=== PATIENT | male | born 1950 | race Caucasian/White ===

== ENCOUNTER 2019-08-05 23:21 | Emergency (ER) | payer OTHER ==
--- NOTE | 2019-08-06 00:24 | EDM.PDOC ---
ED HPI GENERAL MEDICAL PROBLEM - General Chief Complaint: General Stated Complaint: FELL OUT OF BED Time Seen by Provider: 08/05/19 23:35 Source of Information: Reports: Patient, EMS History Limitations: Reports: No Limitations - History of Present Illness INITIAL COMMENTS - FREE TEXT/NARRATIVE: According to patient's spouse, he was transferring himself from bed to his walker to use the toilet to night and he lost control and fell , when she went to see, he was on the ground. Pt is a heavy set male. She could not lift him up so she called for Ambulance. Per EMT, his SPO2 on site was 78% and was place on 15 liters non rebreather. in the emergency room he is maintaining SPO2 of 95-97% on 2 litres. he does have cough which his spouse claims is chronic. Pt is alert and very groggy( which his spouse claims is normal for him). He does answer questions appropriately. 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 He did take 6 tabs of Vicodin today. Also he has chronic right leg edema and seeping wound for several years now according to his spouse. He takes lasix to help with swelling. Onset: Today Onset Date: 08/05/19 Onset Time: 22:00 Location: Reports: Back, Lower Extremity, Right Quality: Reports: Ache Severity: Moderate Associated Symptoms: Reports: Fever/Chills. Denies: Confusion, Chest Pain, Cough, Diaphoresis, Headaches, Nausea/Vomiting, Rash, Seizure, Shortness of Breath, Syncope, Weakness - Related Data Allergies Allergy/AdvReac Type Severity Reaction Status Date / Time meperidine HCl [From Demerol] Allergy Headache Verified 07/07/13 12:02 varenicline tartrate Allergy Agitation Verified 07/07/13 12:02 [From Chantix] ED ROS GENERAL - Review of Systems Review Of Systems: See Below Constitutional: Reports: Chills. Denies: Fever, Night Sweats, Decreased Appetite HEENT: Denies: Rhinitis, Throat Pain Respiratory: Reports: Cough (chronic). Denies: Shortness of Breath, Wheezing, Pleuritic Chest Pain, Sputum Cardiovascular: Reports: Edema. Denies: Chest Pain, Claudication, Dyspnea on Exertion, Lightheadedness, PND GI/Abdominal: Denies: Abdominal Pain, Constipation, Diarrhea, Nausea, Vomiting : Denies: Dysuria, Frequency Musculoskeletal: Reports: Back Pain, Leg Pain, Foot Pain Skin: Reports: Wound. Denies: Bruising, Pruritis, Rash ED EXAM, GENERAL - Physical Exam Exam: See Below Exam Limited By: No Limitations General Appearance: Alert, Obese, Other (paraplegic, constantly gross body twicthing and also has some parkinsson like tremors of the upper extremities. ) Eye Exam: Left Eye: EOMI, PERRL Ears: Normal External Exam, Normal Canal, Hearing Grossly Normal, Normal TMs Ear Exam: Bilateral Ear: Auricle Normal, Canal Normal, TM normal Nose: Normal Inspection, Normal Mucosa, No Blood Throat/Mouth: Normal Inspection, Normal Lips, Normal Teeth, Normal Gums, Normal Oropharynx, Normal Voice, No Airway Compromise Head: Atraumatic, Normocephalic Neck: Normal Inspection, Supple, Non-Tender, Full Range of Motion Respiratory/Chest: No Respiratory Distress, No Accessory Muscle Use, Decreased Breath Sounds, Crackles (in the base B/l) Cardiovascular: Normal Peripheral Pulses, Regular Rate, Rhythm, No Edema, No Gallop, No JVD, No Murmur, No Rub GI/Abdominal: Normal Bowel Sounds, Soft, Non-Tender, No Organomegaly, No Distention, No Abnormal Bruit, No Mass Back Exam: Normal Inspection, Full Range of Motion (cannot do much ROM of the back, due to spasm and pain), Other Extremities: Other (Right lower extremity chronic edema extends into the upper leg , minimal chronic erythema and pitting type, There is clear serous drainage from the posterior aspect of the lower leg from skin stretching.) Neurological: Alert Skin Exam: Warm EKG INTERPRETATION Rhythm: A-Fib Rate (Beats/Min): 98 [place]: Normal QRS: Normal ST-T: Normal QT: Normal EKG Interpretation Comments: Afib with RVR Course - Vital Signs Text/Narrative:: Pt is very stuporous. He is running low grade fever today. He was brought into emergency room for a fall today. He is alert, but groggy. His spouse feels that it is normal for him to feel that way, as he does not sleep well when he has bad back spasms. His Ct lumbar spine and pelvis is negative for acute fractures. his right Tib X-ray appears normal. His right foot X-ray appears normal. There does not appear any acute bony injury. Also he is running fever in the emergency room and has chronic right leg edema with skin breakdown. He does have chronic cough which is not new either. I did get CBC which shows elevated White count of 26K with 73% neutrophils. His Lactic acid is elevated at 3.32. His chest X-ray shows pulmonary venous congestion concern for CHF.His EKG show afib with multiple [place]. [place] [address], His troponin is elevated at 0.8 . Also his CMP show elevated creat of 2.2with BUN of 43 and his last Creat in 2017 was 1.2. According to spouse he does not have cardiac history at all. My assumption is, patient probably has got septic from his right leg infection, was getting of the bed and might have had [place] felt weak and fell. Pt is in sepsis( possibly from the right leg chronic wound), Non STEMI, Heart failure and renal failure. He did receive Vancomycin 1gm and also He has received Aspirin 324mg chewable. Kept him on O2 at 2 litre. Received heparin bolus 4000 units followed by 1000unit/hr. As patient is and has his care through [place], I did contact [facility] and discuss patient with Dr. Tucker the [facility] commissioner of relocation services. Her recommendation was to transfer patient to [facility]. I did contact Dr. Wells and discuss patient with him. He has agreed to accept patient. Patient has been hemodynamically stable all through the emergency room stay.Pt will be transferred by [facility]. Further care per Dr. Wells. Last Recorded V/S: Last Vital Signs Temp 99.2 F 08/06/19 01:08 Pulse 99 08/06/19 01:08 Resp 20 08/06/19 01:08 BP 149/62 H 08/06/19 01:08 Pulse Ox 96 08/06/19 01:08 - Orders/Labs/Meds Orders: Active Orders 24 hr Category Date Time Status EKG Documentation Completion [RC] ASDIRECTED Care 08/06/19 01:28 Active Chest 1V Frontal [CR] Stat Exams 08/06/19 00:52 Taken Foot 2V Rt [CR] Stat Exams 08/05/19 23:56 Taken Lumbar Spine wo Cont [CT] Stat Exams 08/05/19 23:56 Taken Pelvis wo Cont [CT] Stat Exams 08/05/19 23:56 Taken Tibia Fibula Rt [CR] Stat Exams 08/05/19 23:56 Taken CULTURE BLOOD [BC] Stat Lab 08/06/19 01:20 Received Heparin Sodium/D5W [Heparin 25,000 Units in D5W 500 ML] Med 08/06/19 02:15 Active 25,000 units in 500 ml IV TITRATE Medication Orders Heparin Sodium/Dextrose (Heparin 25,000 Units In D5w 500 Ml) 25,000 units in 500 mls @ 28.522 mls/hr IV TITRATE POOL; Protocol Last Admin: 08/06/19 02:17 Dose: 12 units/kg/hr, 28.522 mls/hr Labs: Laboratory Tests 08/06/19 08/06/19 08/06/19 Range/Units 00:40 00:40 00:40 WBC (4.0-11.0) K/uL RBC (4.50-6.50) M/uL Hgb (13.0-18.0) g/dL Hct (40.0-54.0) % MCV (76-96) fL MCH (27.0-32.0) pg MCHC (31.0-35.0) g/dL RDW (11.0-16.0) % Plt Count (150-400) K/uL MPV (6.0-10.0) fL Add Manual Diff Neutrophils % (Manual) (45.0-70.0) % Band Neutrophils % % Lymphocytes % (Manual) (20.0-40.0) % Monocytes % (Manual) (3.0-10.0) % Basophils % (Manual) (0.0-0.5) % Platelet Estimate PT (9.0-11.5) sec INR (1.0-3.5) APTT (24.4-33.2) SECONDS Sodium 132 L (136-145) mmol/L Potassium 3.5 (3.5-5.1) mmol/L Chloride 95 L (98-107) mmol/L Carbon Dioxide 24.7 D (21.0-32.0) mmol/L Anion Gap 15.8 H (5.0-15.0) mmol/L BUN 43 H D (8-26) mg/dL Creatinine 2.26 H D (0.70-1.30) mg/dL Est Cr Clr Drug Dosing 34.86 mL/min Estimated GFR (MDRD) 29 L (>60) MLS/MIN BUN/Creatinine Ratio 19.0 (6-25) Glucose 258 H (74-100) mg/dL Lactic Acid 3.32 H (0.90-1.70) mmol/L Calcium 9.4 (8.5-10.1) mg/dL Total Bilirubin 0.6 (0.0-1.0) mg/dL AST 41 H (15-37) U/L ALT 15 (12-78) U/L Alkaline Phosphatase 59 (46-116) U/L Troponin I (0.000-0.060) ng/mL B-Natriuretic Peptide 65135 H D (0-125) pg/mL Total Protein 7.8 (6.4-8.2) g/dL Albumin 2.5 L (3.4-5.0) g/dL Globulin 5.3 H (2.2-4.2) g/dL Albumin/Globulin Ratio 0.5 L (0.8-2.0) 08/06/19 08/06/19 08/06/19 Range/Units 00:40 00:40 00:47 WBC 26.9 H* D (4.0-11.0) K/uL RBC 4.11 L (4.50-6.50) M/uL Hgb 12.9 L (13.0-18.0) g/dL Hct 37.7 L (40.0-54.0) % MCV 92 (76-96) fL MCH 31.4 (27.0-32.0) pg MCHC 34.2 (31.0-35.0) g/dL RDW 13.9 (11.0-16.0) % Plt Count 217 (150-400) K/uL MPV 9.6 (6.0-10.0) fL Add Manual Diff Yes Neutrophils % (Manual) 73.0 H (45.0-70.0) % Band Neutrophils % 22.0 % Lymphocytes % (Manual) 3.0 L (20.0-40.0) % Monocytes % (Manual) 1.0 L (3.0-10.0) % Basophils % (Manual) 1.0 H (0.0-0.5) % Platelet Estimate Adequate PT 14.3 H D (9.0-11.5) sec INR 1.5 D (1.0-3.5) APTT 44.1 H (24.4-33.2) SECONDS Sodium (136-145) mmol/L Potassium (3.5-5.1) mmol/L Chloride (98-107) mmol/L Carbon Dioxide (21.0-32.0) mmol/L Anion Gap (5.0-15.0) mmol/L BUN (8-26) mg/dL Creatinine (0.70-1.30) mg/dL Est Cr Clr Drug Dosing mL/min Estimated GFR (MDRD) (>60) MLS/MIN BUN/Creatinine Ratio (6-25) Glucose (74-100) mg/dL Lactic Acid (0.90-1.70) mmol/L Calcium (8.5-10.1) mg/dL Total Bilirubin (0.0-1.0) mg/dL AST (15-37) U/L ALT (12-78) U/L Alkaline Phosphatase (46-116) U/L Troponin I 0.802 H* (0.000-0.060) ng/mL B-Natriuretic Peptide (0-125) pg/mL Total Protein (6.4-8.2) g/dL Albumin (3.4-5.0) g/dL Globulin (2.2-4.2) g/dL Albumin/Globulin Ratio (0.8-2.0) Meds: Medications Generic Name Dose Route Start Last Admin Trade Name Freq PRN Reason Stop Dose Admin Heparin Sodium/Dextrose 25,000 units in 500 mls @ 28.522 mls/hr 08/06/19 02: 15 08/06/19 02:17 Heparin 25,000 Units In D5w 500 Ml IV 12 units/kg/hr TITRATE POOL 28.522 mls/hr Administration Protocol 12 UNITS/KG/HR Discontinued Medications Generic Name Dose Route Start Last Admin Trade Name Freq PRN Reason Stop Dose Admin Aspirin 324 mg 08/06/19 02:31 Aspirin PO 08/06/19 02:32 ONETIME ONE Heparin Sodium (Porcine) 4,000 units 08/06/19 02:11 Heparin Sodium IVPUSH 08/06/19 02:12 ONETIME ONE Vancomycin HCl 1 gm/ Sodium 250 mls @ 167 mls/hr 08/06/19 01:44 08/06/19 02: 00 Chloride IV 08/06/19 03:13 167 mls/hr Q24H STA Administration Vancomycin HCl Confirm 08/06/19 01:44 Vancomycin Administered 08/06/19 01:45 Dose 1 gm .ROUTE .STK-MED ONE Departure - Departure Time of Disposition: 04:30 Disposition: DC/Tfer to Acute Hospital 02 Condition: Fair Clinical Impression: Non-STEMI (non-ST elevated myocardial infarction), Sepsis, CHF (congestive heart failure), Renal failure, Afib - Discharge Information *PRESCRIPTION DRUG MONITORING PROGRAM REVIEWED*: Not Applicable *COPY OF PRESCRIPTION DRUG MONITORING REPORT IN PATIENT BETTY: Not Applicable Referrals: Xena Johnson PA [Primary Care Provider] - Forms: ED Department Discharge - Problem List & Annotations (1) Afib SNOMED Code(s): 57877456 Code(s): I48.91 - UNSPECIFIED ATRIAL FIBRILLATION Status: Acute Current Visit: Yes (2) CHF (congestive heart failure) SNOMED Code(s): 65204303 Code(s): I50.9 - HEART FAILURE, UNSPECIFIED Status: Acute Current Visit: Yes (3) Non-STEMI (non-ST elevated myocardial infarction) SNOMED Code(s): 13621365 Code(s): I21.4 - NON-ST ELEVATION (NSTEMI) MYOCARDIAL INFARCTION Status: Acute Current Visit: Yes (4) Renal failure SNOMED Code(s): 38297056 Code(s): N19 - UNSPECIFIED KIDNEY FAILURE Status: Acute Current Visit: Yes (5) Sepsis SNOMED Code(s): 99824943 Code(s): A41.9 - SEPSIS, UNSPECIFIED ORGANISM Status: Acute Current Visit : Yes - Problem List Review Problem List Initiated/Reviewed/Updated: Yes - My Orders Last 24 Hours: My Active Orders 08/05/19 23:56 Foot 2V Rt [CR] Stat Lumbar Spine wo Cont [CT] Stat Pelvis wo Cont [CT] Stat Tibia Fibula Rt [CR] Stat 08/06/19 00:52 Chest 1V Frontal [CR] Stat 08/06/19 01:20 CULTURE BLOOD [BC] Stat 08/06/19 01:28 EKG Documentation Completion [RC] ASDIRECTED 08/06/19 02:15 Heparin Sodium/D5W [Heparin 25,000 Units in D5W 500 ML] 25,000 units in 500 ml IV TITRATE - Assessment/Plan Last 24 Hours: My Active Orders 08/05/19 23:56 Foot 2V Rt [CR] Stat Lumbar Spine wo Cont [CT] Stat Pelvis wo Cont [CT] Stat Tibia Fibula Rt [CR] Stat 08/06/19 00:52 Chest 1V Frontal [CR] Stat 08/06/19 01:20 CULTURE BLOOD [BC] Stat 08/06/19 01:28 EKG Documentation Completion [RC] ASDIRECTED 08/06/19 02:15 Heparin Sodium/D5W [Heparin 25,000 Units in D5W 500 ML] 25,000 units in 500 ml IV TITRATE Assessment:: Sepsis NonSTEMI CHF Renal failure Afib Plan: Pt is very stuporous. He is running low grade fever today. He was brought into emergency room for a fall today. He is alert, but groggy. His spouse feels that it is normal for him to feel that way, as he does not sleep well when he has bad back spasms. His Ct lumbar spine and pelvis is negative for acute fractures. his right Tib X-ray appears normal. His right foot X-ray appears normal. There does not appear any acute bony injury. Also he is running fever in the emergency room and has chronic right leg edema with skin breakdown. He does have chronic cough which is not new either. I did get CBC which shows elevated White count of 26K with 73% neutrophils. His Lactic acid is elevated at 3.32. His chest X-ray shows pulmonary venous congestion concern for CHF.His EKG show afib with multiple [place]. [place] [address], His troponin is elevated at 0.8 . Also his CMP show elevated creat of 2.2with BUN of 43 and his last Creat in 2017 was 1.2. According to spouse he does not have cardiac history at all. My assumption is, patient probably has got septic from his right leg infection, was getting of the bed and might have had [place] felt weak and fell. Pt is in sepsis( possibly from the right leg chronic wound), Non STEMI, Heart failure and renal failure. He did receive Vancomycin 1gm and also He has received Aspirin 324mg chewable. Kept him on O2 at 2 litre. Received heparin bolus 4000 units followed by 1000unit/hr. As patient is and has his care through [place], I did contact [facility] and discuss patient with Dr. Tucker the [employer] commissioner of relocation services. Her recommendation was to transfer patient to [facility]. I did contact Dr. Wells and discuss patient with him. He has agreed to accept patient. Patient has been hemodynamically stable all through the emergency room stay.Pt will be transferred by [facility]. Further care per Dr. Wells.
[2019-08-06] MEDS ORDERED: Vancomycin 1 GM SDV ONE (01:44)
[2019-08-06] MEDS ORDERED: Heparin Sodium 5,000 UNITS/0.5 ML Syringe IVPUSH ONE (02:11)
[2019-08-06] MEDS ORDERED: Heparin Sodium/D5W 25,000 UNITS/500 ML BAG IV SCH (02:15)
[2019-08-06] MEDS ORDERED: Aspirin 81 MG Tab.Chew PO ONE (02:31)
[2019-08-06 04:21] VITALS: BP 136/69; PULSE 103
--- NOTE | 2019-08-06 20:54 | CR ---
CLINICAL DATA: Fever. AP PORTABLE CHEST, 06 AUGUST 2019: Comparison is made to a prior exam dated 09 September 2013. The patient has taken a poor inspiration. The heart is enlarged. It has increased in size from the prior exam. There is pulmonary vascular congestion and interstitial edema throughout both lungs consistent with congestive failure. No pneumothorax. No pleural effusions. Job: [id number] MTDD
--- NOTE | 2019-08-06 21:12 | CR ---
CLINICAL DATA: Fall. RIGHT LOWER LEG, 06 AUGUST 2019: The patient is status post right knee arthroplasty. The prosthesis appears intact. No acute fracture or dislocation. No focal lytic or blastic bone lesions. There are vascular calcifications in the soft tissues. Job: [id number] MTDD
--- NOTE | 2019-08-06 21:18 | CR ---
CLINICAL DATA: Fall. RIGHT FOOT, 06 AUGUST 2019: There is soft tissue swelling over the dorsum of the foot. There is a healed fracture of the distal 4th metatarsal. There are osteoarthritic changes involving multiple joints. There is a plantar calcaneal spur. There is a questionable faint lucency through the proximal phalanx of the 2nd toe which may represent a nondisplaced fracture. No other acute abnormalities. Job: [id number] [facility]
--- NOTE | 2019-08-07 19:13 | CT ---
Date of Service: 08/05/19 Clinical Data: fall LUMBAR SPINE CT: Multislice axial acquisition from T1 to S3 was performed. Axial images and sagittal and coronal reformations are viewed. There is diffuse osteopenia. I do not see any acute fractures. There is mild retrolisthesis of L1 on L2 and of L2 on L3. The patient is status post diskectomy and fusion at the L4-5 and L5-S1 levels. There is internal fixation of L4, L5, and S1 without posterior metal rods. There is degenerative disk disease throughout the remainder of the lower thoracic and lumbar spine. There is vacuum disk phenomena at the L1-2 and L2-3 levels. There is annular bulging of the L1-2 disk. There are prominent disk margins spurs posteriorly also. There is facet joint and ligamentum flavum hypertrophy at this level. There is severe central spinal stenosis and moderate neural foramen stenosis bilaterally. There is annular bulging of the L2-3 disk. There are prominent posterior disk margins spurs at this level. There is facet joint and ligamentum flavum hypertrophy at this level. There is severe central spinal stenosis and moderate neural foramen stenosis bilaterally. There is mild annular bulging of the L3-4 disk. There is facet joint hypertrophy at this level. There is mild central and mild neural foramen stenosis bilaterally. No other significant findings. [id number] [facility]
--- NOTE | 2019-08-07 19:17 | CT ---
Date of Service: 08/05/19 Clinical Data: fall UNENHANCED PELVIC CT: Multislice axial acquisition was performed. Axial images and sagittal and coronal reformations are reviewed . There is diffuse osteopenia. I do not seen an acute fracture or dislocation. There are [id number] osteoarthritic changes of both hip joints. There are degenerative changes involving the SI joints and symphysis pubis. There are calcifications within the prostate consistent with chronic prostatitis. No other significant findings. [id number] [facility]
== END 2019-08-06 04:45 ==
LOC: LB.ED 23:21
DX: A41.9 Sepsis, unspecified organism (principal); R65.20 Severe sepsis without septic shock; N17.9 Acute kidney failure, unspecified; I50.9 Heart failure, unspecified; I21.4 Non-ST elevation (NSTEMI) myocardial infarction; I48.91 Unspecified atrial fibrillation; E66.9 Obesity, unspecified; Z88.5 Allergy status to narcotic agent; Z88.8 Allergy status to other drugs, medicaments and biological substances; Z68.33 Body mass index [BMI] 33.0-33.9, adult
CPT/HCPCS: 36415; 71045; 72131; 72192; 73590-RT; 73620-RT; 80053; 83605; 83880; 84484; 85025; 85610; 85730; 87040; 93005; 96365; 96366; 96368; 99285; 99285-25; A0425; A0429; A9270-GY; J1644; J1644-GY; J3370; J7050

== ENCOUNTER 2020-02-20 14:48 | Emergency (ER) | payer OTHER, MEDICARE ==
[2020-02-20] MEDS ORDERED: Thiamine 200 MG/2 ML MDV IM ONE (15:31)
[2020-02-20] MEDS ORDERED: Acetaminophen/oxyCODONE 325-5 MG Tab PO PRN (15:31)
[2020-02-20] MEDS ORDERED: Lidocaine 5% 700 MG Patch TOP ONE (15:32)
[2020-02-20] MEDS ORDERED: Lidocaine 5% 700 MG Patch ONE (15:38)
[2020-02-20] MEDS ORDERED: Acetaminophen/oxyCODONE 325-5 MG Tab ONE (15:38)
[2020-02-20] MEDS ORDERED: Triamcinolone Acetonide 40 MG/ML 1 ML MDV ONE (15:39)
--- NOTE | 2020-02-20 15:59 | EDM.PDOC ---
ED HPI GENERAL MEDICAL PROBLEM - General Stated Complaint: PAIN IN AMPUTATED LEG Time Seen by Provider: 02/20/20 15:21 Source of Information: Reports: Patient, EMS, RN History Limitations: Reports: Altered Mental Status (?? per ems crew, he seems to drift off when going into rather extended sentences, that all agree, is entirly coherent) - History of Present Illness INITIAL COMMENTS - FREE TEXT/NARRATIVE: EMS report that Reg called the ambulance due to back pain. 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 He states that his discomfort today appears "like infection". 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 He admits that he has not had any issues in terms of changes to the lower sensory distribution of his body, but does have some chronic pain, particularly of his right lower extremity that was amputated around September. He apparently just got home from the hospital 3 weeks ago. He follows at the [place]. He denies any exertional symptoms. He has had no fever or cough. He has a chronic indwelling Patel. The RN in the resuscitation bay notes a small amount of serosanguineous discharge from the meatus, and attributes this to him pulling at his Patel, which appears to be chronic in nature. He says the oxycodone is the only thing that helps his pain at all, and explicitly states that this is a worsening severity of his chronic pain, and, in no other way, does this have significant radicular or other features. Lower Back Pain Score (Numeric/FACES): 5 - Related Data Allergies Allergy/AdvReac Type Severity Reaction Status Date / Time meperidine HCl [From Demerol] Allergy Headache Verified 07/07/13 12:02 varenicline tartrate Allergy Agitation Verified 07/07/13 12:02 [From Chantix] Social & Family History - Caffeine Use Caffeine Use: Reports: None ED ROS GENERAL - Review of Systems Review Of Systems: Comprehensive ROS is negative, except as noted in HPI. ED EXAM, GENERAL - Physical Exam Exam: See Below General Appearance: Alert, WD/WN, No Apparent Distress Ears: Normal External Exam, Hearing Grossly Normal Nose: Normal Inspection Throat/Mouth: Normal Voice, No Airway Compromise Head: Atraumatic, Normocephalic Neck: Normal Inspection, Supple, Non-Tender, Full Range of Motion. No: Tender Midline Respiratory/Chest: No Respiratory Distress, Lungs Clear, Normal Breath Sounds, Chest Non-Tender. No: Crackles, Rhonchi, Wheezing Cardiovascular: Regular Rate, Rhythm, No Murmur GI/Abdominal: Normal Bowel Sounds, Soft, Non-Tender, Pelvis Stable Back Exam: Muscle Spasm, Paraspinal Tenderness (Mainly of bilateral Lumbar spine , which almost has an allodynia, and it is very difficult to exclude some focal left SI joint pain, without any sign of underlying infectious source, bony, or otherwise. No skin changes or pointing abscess, and well-healed midline Lumbar surgical incision, which parallels those dermatomes, particulalry hip flexion or his RLE stump against resistance is more than adequate, and sensation intact throughout to touch). No: CVA Tenderness (R), CVA Tenderness (L), Vertebral Tenderness Course - Vital Signs Text/Narrative:: Reg was noted to have some improvement of his pain with 2 Percocet orally, and the application of 3 Lidoderm patches. In addition, his left SI joint was somewhat tender, but his right SI joint was moderately to severely tender, and therefore, this was injected with 40 mg of triamcinolone and 9 mL's of bupivacaine under the usual sterile precautions, and he tolerated this well. He had some definite improvement in his symptoms, and repeat examination of his back reveals, paravertebral muscle spasm somewhat tender to diffuse palpation definitely of his lumbar area paralleling the length of his scar longitudinally , and extending out to the lateral musculature of his back, without CVA tenderness, rib tenderness, or apparent discomfort of his iliac crest. Reg seemed to benefit greatly from injection of his SI joint, as well as application of a couple more Lidoderm patches. In fact, at this point, he requested discharge home. I did speak with his care team, and she was interested in him getting physical therapy, and I did Napoleon completed the order for evaluation and treatment of his chronic back pain. We encouraged him to use the TENS, continue with gentle range of motion exercise as tolerated, and to return with any other flares or other symptoms, particularly of cauda equina , which he knows well. In terms of infection, he does have some contamination of his urine, but this is very much likely to represent micro-biome and his Patel bag. Overall, his C-reactive protein is elevated, but this is nonspecific along with his white count, and he certainly does not appear to be septic, or have any other focal source of infection apparent. He will continue to watch for symptoms, and come in immediately with any problems. Last Recorded V/S: Last Vital Signs Temp 98.7 F 02/20/20 15:15 Pulse 90 02/20/20 15:15 Resp 18 02/20/20 15:15 BP 160/94 H 02/20/20 15:15 Pulse Ox 96 02/20/20 15:15 - Orders/Labs/Meds Orders: Active Orders 24 hr Category Date Time Status EKG Documentation Completion [RC] ASDIRECTED Care 02/20/20 15:25 Active CULTURE URINE [RM] Stat Lab 02/20/20 17:40 Received Labs: Laboratory Tests 02/20/20 02/20/20 02/20/20 Range/Units 15:28 15:54 16:00 WBC 11.2 H D (4.0-11.0) K/uL RBC 4.00 L (4.50-6.50) M/uL Hgb 11.3 L (13.0-18.0) g/dL Hct 34.8 L (40.0-54.0) % MCV 87 (76-96) fL MCH 28.3 (27.0-32.0) pg MCHC 32.5 (31.0-35.0) g/dL RDW 15.3 (11.0-16.0) % Plt Count 330 D (150-400) K/uL MPV 8.9 (6.0-10.0) fL Neut % (Auto) 75.5 H (45.0-70.0) % Lymph % (Auto) 11.7 L (20.0-40.0) % [place] % (Auto) 10.7 H (3.0-10.0) % Eos % (Auto) 1.8 (1.0-5.0) % Baso % (Auto) 0.3 (0.0-0.5) % Neut # (Auto) 8.48 H (2.00-7.50) K/uL Lymph # (Auto) 1.31 L (1.50-4.00) K/uL [place] # (Auto) 1.20 H (0.20-0.80) K/uL Eos # (Auto) 0.20 (0.04-0.40) K/uL Baso # (Auto) 0.03 (0.02-0.10) K/uL PT (9.0-11.5) sec INR (1.0-3.5) Sodium 136 (136-145) mmol/L Potassium 3.8 (3.5-5.1) mmol/L Chloride 97 L (98-107) mmol/L Carbon Dioxide 29.7 D (21.0-32.0) mmol/L Anion Gap 13.1 (5.0-15.0) mmol/L BUN 18 D (8-26) mg/dL Creatinine 1.57 H D (0.70-1.30) mg/dL Est Cr Clr Drug Dosing 47.37 mL/min Estimated GFR (MDRD) 44 L (>60) MLS/MIN BUN/Creatinine Ratio 11.5 (6-25) Glucose 88 D (74-100) mg/dL Lactic Acid 1.0 (0.4-2.0) mmol/L Calcium 9.3 (8.5-10.1) mg/dL Total Bilirubin 0.7 (0.0-1.0) mg/dL AST 15 (15-37) U/L ALT 16 (12-78) U/L Alkaline Phosphatase 56 (46-116) U/L Ammonia (11-32) umol/L C-Reactive Protein (0.0-3.0) mg/L Total Protein 7.3 (6.4-8.2) g/dL Albumin 2.3 L (3.4-5.0) g/dL Globulin 5.0 H (2.2-4.2) g/dL Albumin/Globulin Ratio 0.5 L (0.8-2.0) Urine Color Urine Appearance (CLEAR) Urine pH (5.0-8.0) Ur Specific [place] (1.003-1.030) Urine Protein (NEGATIVE) mg/dL Urine Glucose (UA) (NEGATIVE) mg/dL Urine Ketones (NEGATIVE) mg/dL Urine Occult Blood (NEGATIVE) Urine Nitrite (NEGATIVE) Urine Bilirubin (NEGATIVE) Urine Urobilinogen (0.2-1.0) E.U./dL Ur Leukocyte Esterase (NEGATIVE) U Hyaline Cast (Auto) /HPF Urine RBC /HPF Urine WBC /HPF Urine Bacteria /HPF 02/20/20 02/20/20 02/20/20 Range/Units 16:00 16:00 16:00 WBC (4.0-11.0) K/uL RBC (4.50-6.50) M/uL Hgb (13.0-18.0) g/dL Hct (40.0-54.0) % MCV (76-96) fL MCH (27.0-32.0) pg MCHC (31.0-35.0) g/dL RDW (11.0-16.0) % Plt Count (150-400) K/uL MPV (6.0-10.0) fL Neut % (Auto) (45.0-70.0) % Lymph % (Auto) (20.0-40.0) % [place] % (Auto) (3.0-10.0) % Eos % (Auto) (1.0-5.0) % Baso % (Auto) (0.0-0.5) % Neut # (Auto) (2.00-7.50) K/uL Lymph # (Auto) (1.50-4.00) K/uL [place] # (Auto) (0.20-0.80) K/uL Eos # (Auto) (0.04-0.40) K/uL Baso # (Auto) (0.02-0.10) K/uL PT 11.8 H (9.0-11.5) sec INR 1.2 (1.0-3.5) Sodium (136-145) mmol/L Potassium (3.5-5.1) mmol/L Chloride (98-107) mmol/L Carbon Dioxide (21.0-32.0) mmol/L Anion Gap (5.0-15.0) mmol/L BUN (8-26) mg/dL Creatinine (0.70-1.30) mg/dL Est Cr Clr Drug Dosing mL/min Estimated GFR (MDRD) (>60) MLS/MIN BUN/Creatinine Ratio (6-25) Glucose (74-100) mg/dL Lactic Acid (0.4-2.0) mmol/L Calcium (8.5-10.1) mg/dL Total Bilirubin (0.0-1.0) mg/dL AST (15-37) U/L ALT (12-78) U/L Alkaline Phosphatase (46-116) U/L Ammonia 20 (11-32) umol/L C-Reactive Protein 187.1 H (0.0-3.0) mg/L Total Protein (6.4-8.2) g/dL Albumin (3.4-5.0) g/dL Globulin (2.2-4.2) g/dL Albumin/Globulin Ratio (0.8-2.0) Urine Color Urine Appearance (CLEAR) Urine pH (5.0-8.0) Ur Specific [place] (1.003-1.030) Urine Protein (NEGATIVE) mg/dL Urine Glucose (UA) (NEGATIVE) mg/dL Urine Ketones (NEGATIVE) mg/dL Urine Occult Blood (NEGATIVE) Urine Nitrite (NEGATIVE) Urine Bilirubin (NEGATIVE) Urine Urobilinogen (0.2-1.0) E.U./dL Ur Leukocyte Esterase (NEGATIVE) U Hyaline Cast (Auto) /HPF Urine RBC /HPF Urine WBC /HPF Urine Bacteria /HPF 02/20/20 Range/Units 17:40 WBC (4.0-11.0) K/uL RBC (4.50-6.50) M/uL Hgb (13.0-18.0) g/dL Hct (40.0-54.0) % MCV (76-96) fL MCH (27.0-32.0) pg MCHC (31.0-35.0) g/dL RDW (11.0-16.0) % Plt Count (150-400) K/uL MPV (6.0-10.0) fL Neut % (Auto) (45.0-70.0) % Lymph % (Auto) (20.0-40.0) % [place] % (Auto) (3.0-10.0) % Eos % (Auto) (1.0-5.0) % Baso % (Auto) (0.0-0.5) % Neut # (Auto) (2.00-7.50) K/uL Lymph # (Auto) (1.50-4.00) K/uL [place] # (Auto) (0.20-0.80) K/uL Eos # (Auto) (0.04-0.40) K/uL Baso # (Auto) (0.02-0.10) K/uL PT (9.0-11.5) sec INR (1.0-3.5) Sodium (136-145) mmol/L Potassium (3.5-5.1) mmol/L Chloride (98-107) mmol/L Carbon Dioxide (21.0-32.0) mmol/L Anion Gap (5.0-15.0) mmol/L BUN (8-26) mg/dL Creatinine (0.70-1.30) mg/dL Est Cr Clr Drug Dosing mL/min Estimated GFR (MDRD) (>60) MLS/MIN BUN/Creatinine Ratio (6-25) Glucose (74-100) mg/dL Lactic Acid (0.4-2.0) mmol/L Calcium (8.5-10.1) mg/dL Total Bilirubin (0.0-1.0) mg/dL AST (15-37) U/L ALT (12-78) U/L Alkaline Phosphatase (46-116) U/L Ammonia (11-32) umol/L C-Reactive Protein (0.0-3.0) mg/L Total Protein (6.4-8.2) g/dL Albumin (3.4-5.0) g/dL Globulin (2.2-4.2) g/dL Albumin/Globulin Ratio (0.8-2.0) Urine Color Yellow Urine Appearance Clear (CLEAR) Urine pH 6.0 (5.0-8.0) Ur Specific [place] 1.020 (1.003-1.030) Urine Protein 30 H (NEGATIVE) mg/dL Urine Glucose (UA) Negative (NEGATIVE) mg/dL Urine Ketones Negative (NEGATIVE) mg/dL Urine Occult Blood Moderate H (NEGATIVE) Urine Nitrite Positive H (NEGATIVE) Urine Bilirubin Negative (NEGATIVE) Urine Urobilinogen 1.0 (0.2-1.0) E.U./dL Ur Leukocyte Esterase Small H (NEGATIVE) U Hyaline Cast (Auto) Rare /HPF Urine RBC 5-10 H /HPF Urine WBC 5-10 H /HPF Urine Bacteria Few /HPF Meds: Medications Discontinued Medications Generic Name Dose Route Start Last Admin Trade Name Freq PRN Reason Stop Dose Admin Lidocaine 700 mg 02/20/20 15:32 02/20/20 15:42 Lidoderm 5% TOP 02/20/20 15:33 700 mg ONETIME ONE Administration Lidocaine Confirm 02/20/20 15:38 02/20/20 16:32 Lidoderm 5% Administered 02/20/20 15:39 Not Given Dose 700 mg .ROUTE .STK-MED ONE Oxycodone/Acetaminophen 2 tab 02/20/20 15:31 02/20/20 16:07 Percocet 325-5 Mg PO 2 tab ONETIME PRN Administration Pain Oxycodone/Acetaminophen Confirm 02/20/20 15:38 02/20/20 16:32 Percocet 325-5 Mg Administered 02/20/20 15:39 Not Given Dose 2 tab .ROUTE .STK-MED ONE Thiamine HCl 100 mg 02/20/20 15:31 02/20/20 16:37 Vitamin B-1 IM 02/20/20 15:32 100 mg ONETIME ONE Administration Triamcinolone Acetonide Confirm 02/20/20 15:39 02/20/20 16:32 Kenalog-40 Administered 02/20/20 15:40 Not Given Dose 40 mg .ROUTE .STK-MED ONE Departure - Departure Time of Disposition: 17:20 Disposition: Home, Self-Care 01 Clinical Impression: Chronic low back pain - Discharge Information Instructions: What You Need to Know About Chronic Back Pain, Chronic Back Pain , Imjc-bu-Huoh Referrals: PCP,None [Primary Care Provider] - Forms: ED Department Discharge Additional Instructions: Do not hesitate to return if you have increasing pain, focal weakness, sensory deficits, or increasing urinary retention. Also if you do not feel well, spike a fever, or have any other changes from your baseline, it would be nice to see you back right away. Otherwise, please follow-up with your team of doctors as soon as possible. Good luck with everything! Fadi Mahajan MD Sepsis Event Note - Focused Exam Vital Signs: Vital Signs Temp Pulse Resp BP Pulse Ox 02/20/20 15:15 98.7 F 90 18 160/94 H 96 Date Exam was Performed: 02/20/20 Time Exam was Performed: 18:39 - My Orders Last 24 Hours: My Active Orders 02/20/20 15:25 EKG Documentation Completion [RC] ASDIRECTED 02/20/20 17:40 CULTURE URINE [RM] Stat - Assessment/Plan Last 24 Hours: My Active Orders 02/20/20 15:25 EKG Documentation Completion [RC] ASDIRECTED 02/20/20 17:40 CULTURE URINE [RM] Stat
--- NOTE | 2020-02-20 16:12 | CT ---
DATE OF SERVICE: 02/20/2020 CLINICAL DATA: Pain Unenhanced brain CT: Multislice acquisition through the brain without IV contrast was performed. No priors. There is diffuse cerebral atrophy. There are periventricular lucencies bilaterally consistent with small vessel ischemic change. No masses or mass effect. No intracranial hemorrhage. No evidence of acute or subacute infarct. There is mild mucosal thickening in the ethmoid sinuses consistent with chronic sinusitis. Impression: No acute intracranial abnormalities. MTDD
[2020-02-20 16:27] VITALS: BP 160/94; PULSE 90
[2020-02-20] MEDS ORDERED: Triamcinolone Acetonide 40 MG/ML 1 ML MDV INJECT ONE (17:00)
== END 2020-02-20 18:30 | disposition home or self-care (01) ==
LOC: LB.ED 14:48
DX: M54.5 Low back pain (principal); G89.29 Other chronic pain; Z88.5 Allergy status to narcotic agent; Z88.8 Allergy status to other drugs, medicaments and biological substances
CPT/HCPCS: 20552; 36415; 70450; 80053; 81001; 82140; 83605; 85025; 85610; 86140; 87086; 87088; 87186; 93005; 96372; 99283; 99284-25; A0425; A0429; A9270-GY; J3301; J3411

== ENCOUNTER 2020-02-21 09:57 | Emergency (ER) | payer OTHER, MEDICARE ==
[2020-02-21 10:25] VITALS: BP 170/86; PULSE 86
[2020-02-21] MEDS ORDERED: Acetaminophen/oxyCODONE 325-5 MG Tab PO PRN (10:40)
--- NOTE | 2020-02-21 10:56 | EDM.PDOC ---
ED HPI GENERAL MEDICAL PROBLEM - General Stated Complaint: BACK PAIN Time Seen by Provider: 02/21/20 10:25 - History of Present Illness INITIAL COMMENTS - FREE TEXT/NARRATIVE: Reg says that he continues to have issues with his back. He again provides an onset of 1969. He states that the last 24 hours or so since he was discharged, he went home and went to bed. He slept pretty well the whole night. He went to get up and noticed that he might of had a bit of leakage of his Patel. Serosanguineous drainage was noted from the tip of his urethra felt related to him pulling on his Patel catheter yesterday while in the ER. He denies any significant gross hematuria or plugging with clots. He states that he tried to roll himself up out of bed, and after being partially seated upright , he just flat out lost strength due to some increase in his lumbar back discomfort. He describes this as being consistent with muscle spasm. His main concern is that of pain control. They are getting some home health care services in the home now. Lower Back Pain Score (Numeric/FACES): 7 - Related Data Allergies Allergy/AdvReac Type Severity Reaction Status Date / Time meperidine HCl [From Demerol] Allergy Headache Verified 02/21/20 10:33 varenicline tartrate Allergy Agitation Verified 02/21/20 10:33 [From Chantix] Home Meds: Home Meds Acetaminophen 650 mg PO TID 02/21/20 [History] Baclofen 5 mg PO BID 02/21/20 [History] Carbidopa/Levodopa [Carbidopa-Levo 25-100 MG ODT] 25 mg PO BEDTIME 02/21/20 [ History] Cholecalciferol (Vitamin D3) [Vitamin D3] 1,000 mg PO BID 02/21/20 [History] Citalopram Hydrobromide [Celexa] 20 mg PO DAILY 02/21/20 [History] Docusate Sodium [Colace] 100 mg PO DAILY 02/21/20 [History] Gabapentin [Neurontin] 600 mg PO BID 02/21/20 [History] Insulin Aspart Prot/Insuln Asp [Insulin Aspart Prot-Insuln Asp] 2 units SQ TID 02/21/20 [History] Insulin Glarg,Human.Rec.Analog [Lantus Solostar] 25 units SQ DAILY 02/21/20 [ History] Oxybutynin Chloride [Ditropan Xl] 10 mg PO DAILY 02/21/20 [History] Pantoprazole [ProTONIX] 40 mg PO DAILY 02/21/20 [History] Potassium Chloride 20 meq PO BID 02/21/20 [History] Rivaroxaban [Xarelto] 20 mg PO DAILY 02/21/20 [History] Simvastatin 80 mg PO BEDTIME 02/21/20 [History] allopurinoL [Zyloprim] 300 mg PO DAILY 02/21/20 [History] amLODIPine [Norvasc] 10 mg PO DAILY 02/21/20 [History] carvediloL [Carvedilol] 12.5 mg PO DAILY 02/21/20 [History] hydrOXYzine HCL [Hydroxyzine HCl] 10 mg PO TID 02/21/20 [History] predniSONE 10 mg PO DAILY 02/21/20 [History] traMADol [Ultram] 50 mg PO TID 02/21/20 [History] Social & Family History - Caffeine Use Caffeine Use: Reports: None ED ROS GENERAL - Review of Systems Review Of Systems: Comprehensive ROS is negative, except as noted in HPI. ED EXAM, GENERAL - Physical Exam Exam: See Below Exam Limited By: No Limitations General Appearance: Alert, WD/WN, No Apparent Distress Head: Atraumatic, Normocephalic Neck: Normal Inspection, Supple, Non-Tender, Full Range of Motion Respiratory/Chest: No Respiratory Distress Cardiovascular: No Murmur, Irregularly Irregular GI/Abdominal: Normal Bowel Sounds, Soft, Non-Tender Back Exam: Normal Inspection, Full Range of Motion, Muscle Spasm Extremities: Normal Range of Motion, Non-Tender, Normal Capillary Refill Neurological: Alert, Oriented, CN II-XII Intact, Normal Cognition, No Motor/ Sensory Deficits Course - Vital Signs Last Recorded V/S: Last Vital Signs Temp 98.6 F 02/21/20 10:23 Pulse 86 02/21/20 10:23 Resp 20 02/21/20 10:23 BP 170/86 H 02/21/20 10:23 Pulse Ox 92 L 02/21/20 10:23 - Orders/Labs/Meds Meds: Medications Discontinued Medications Generic Name Dose Route Start Last Admin Trade Name Freq PRN Reason Stop Dose Admin Oxycodone/Acetaminophen 3 tab 02/21/20 10:40 02/21/20 11:16 Percocet 325-5 Mg PO 3 tab ONETIME PRN Administration Pain Oxycodone/Acetaminophen Confirm 02/21/20 11:24 Percocet 325-5 Mg Administered 02/21/20 11:25 Dose 3 tab .ROUTE .STK-MED ONE Departure - Departure Time of Disposition: 11:15 Disposition: Home, Self-Care 01 Condition: Fair Clinical Impression: Chronic low back pain Qualifiers: Back pain laterality: unspecified Sciatica presence: unspecified whether sciatica present Qualified Code(s): M54.5 - Low back pain - Discharge Information Instructions: Chronic Pain, Adult, Chronic Back Pain Referrals: PCP,None [Primary Care Provider] - Forms: ED Department Discharge Additional Instructions: Thanks for coming back in. Again, I think the biggest problem, is getting some control of your lumbo-sacral muscle tension and chronic discomfort. For now, recommend changing your gabapentin to 300 mg taken 4 times per day. Also, I think it would be oden to increase your baclofen, from 5 mg twice a day to 5 mg 4 times a day as needed for muscle spasm and/or pain. I hope this helps. Please follow-up with your doctor at your earliest convenience to further adjust your regimen. I am hoping having the extra help at home will do wonders for you and your family as well. Good luck with everything, Fadi Mahajan MD Sepsis Event Note - Evaluation Sepsis Screening Result: No Definite Risk - Focused Exam Vital Signs: Vital Signs Temp Pulse Resp BP Pulse Ox 02/21/20 10:23 98.6 F 86 20 170/86 H 92 L Date Exam was Performed: 02/21/20 Time Exam was Performed: 15:35
[2020-02-21] MEDS ORDERED: Acetaminophen/oxyCODONE 325-5 MG Tab ONE (11:24)
== END 2020-02-21 12:28 | disposition home or self-care (01) ==
LOC: LB.ED 09:57
DX: M54.5 Low back pain (principal); G89.29 Other chronic pain; Z88.5 Allergy status to narcotic agent; Z88.8 Allergy status to other drugs, medicaments and biological substances; Z79.01 Long term (current) use of anticoagulants; Z79.4 Long term (current) use of insulin; Z79.899 Other long term (current) drug therapy
CPT/HCPCS: 99283; A9270-GY

== ENCOUNTER 2020-02-22 10:25 | Inpatient (IN) | payer OTHER, MEDICARE ==
[2020-02-22] MEDS ORDERED: Magnesium Hydroxide 400 MG/5 ML Susp 30 ML Cup PO ONE (11:12)
[2020-02-22] MEDS ORDERED: Polyethylene Glycol 3350 Powder 17 GM Packet PO ONE (11:13)
[2020-02-22] MEDS ORDERED: Sodium Phosphate,Monobasic/Sodium Phosphate,Dibasic Enema 133 ML Bottle RECTAL PRN (11:13)
[2020-02-22] MEDS ORDERED: Bisacodyl 10 MG Supp RECTAL ONE (11:14)
[2020-02-22] MEDS ORDERED: Bisacodyl 10 MG Supp ONE (11:16)
[2020-02-22] MEDS ORDERED: Magnesium Hydroxide 400 MG/5 ML Susp 30 ML Cup ONE (11:16)
[2020-02-22] MEDS ORDERED: Polyethylene Glycol 3350 Powder 17 GM Packet ONE (11:17)
--- NOTE | 2020-02-22 11:47 | EDM.PDOC ---
ED HPI GENERAL MEDICAL PROBLEM - General Chief Complaint: General Stated Complaint: abdominal pain Time Seen by Provider: 02/22/20 10:45 - History of Present Illness INITIAL COMMENTS - FREE TEXT/NARRATIVE: Bryce presents to the emergency department today after calling EMS due to concerns of constipation. Along with this, he has had some left-sided abdominal cramping. This is somewhat elicited to light touch, and he does have a difficult time finding a position of comfort with the paroxysms of pain and cramping. He has had no melena or hematochezia. He has had no diarrhea or bowel movement for at least 10 days. This was verified per his family. Bryce thinks that he is taking docusate daily, although he is not sure if he took this over the last day or 2. He articulates a request for oxycodone for pain control of his chronic lumbar spine concerns. He recognizes that this is not a viable treatment plan in the long run, particularly with this sort of issue that he presents with today being a major risk factor. He denies any further genitourinary concerns, as well as any chills, diaphoresis, chest pain pleuritic or otherwise, as well as any shortness of breath at all. Abdominal Pain Score (Numeric/FACES): 5 - Related Data Allergies Allergy/AdvReac Type Severity Reaction Status Date / Time meperidine HCl [From Demerol] Allergy Headache Verified 02/22/20 11:33 varenicline tartrate Allergy Agitation Verified 02/22/20 11:33 [From Chantix] Home Meds: Home Meds Acetaminophen 650 mg PO TID 02/21/20 [History] Baclofen 5 mg PO BID 02/21/20 [History] Carbidopa/Levodopa [Carbidopa-Levo 25-100 MG ODT] 25 mg PO BEDTIME 02/21/20 [ History] Cholecalciferol (Vitamin D3) [Vitamin D3] 1,000 mg PO BID 02/21/20 [History] Citalopram Hydrobromide [Celexa] 20 mg PO DAILY 02/21/20 [History] Docusate Sodium [Colace] 100 mg PO DAILY 02/21/20 [History] Gabapentin [Neurontin] 600 mg PO BID 02/21/20 [History] Insulin Aspart Prot/Insuln Asp [Insulin Aspart Prot-Insuln Asp] 2 units SQ TID 02/21/20 [History] Insulin Glarg,Human.Rec.Analog [Lantus Solostar] 25 units SQ DAILY 02/21/20 [ History] Oxybutynin Chloride [Ditropan Xl] 10 mg PO DAILY 02/21/20 [History] Pantoprazole [ProTONIX] 40 mg PO DAILY 02/21/20 [History] Potassium Chloride 20 meq PO BID 02/21/20 [History] Rivaroxaban [Xarelto] 20 mg PO DAILY 02/21/20 [History] Simvastatin 80 mg PO BEDTIME 02/21/20 [History] allopurinoL [Zyloprim] 300 mg PO DAILY 02/21/20 [History] amLODIPine [Norvasc] 10 mg PO DAILY 02/21/20 [History] carvediloL [Carvedilol] 12.5 mg PO DAILY 02/21/20 [History] hydrOXYzine HCL [Hydroxyzine HCl] 10 mg PO TID 02/21/20 [History] predniSONE 10 mg PO DAILY 02/21/20 [History] traMADol [Ultram] 50 mg PO TID 02/21/20 [History] Social & Family History - Caffeine Use Caffeine Use: Reports: None ED ROS GENERAL - Review of Systems Review Of Systems: Comprehensive ROS is negative, except as noted in HPI. ED EXAM, GENERAL - Physical Exam Exam: See Below Exam Limited By: No Limitations General Appearance: Alert, WD/WN, No Apparent Distress Eye Exam: Bilateral Eye: EOMI, Normal Inspection Ears: Normal External Exam Nose: Normal Inspection Throat/Mouth: Normal Inspection, Normal Voice, No Airway Compromise Head: Atraumatic, Normocephalic Neck: Normal Inspection, Supple, Non-Tender, Full Range of Motion Respiratory/Chest: No Respiratory Distress, Lungs Clear, Normal Breath Sounds Cardiovascular: Irregularly Irregular. No: Systolic Murmur GI/Abdominal: Soft, Non-Tender, Abnormal Bowel Sounds (Hypoactive bowel sounds, without focal tenderness, and no obvious mass or distention.) Back Exam: Normal Inspection. No: CVA Tenderness (R), CVA Tenderness (L) Extremities: Normal Range of Motion Neurological: Alert, Oriented Psychiatric: Normal Affect, Normal Mood Lymphatic: No Adenopathy Course - Vital Signs Last Recorded V/S: Last Vital Signs Temp 98.8 F 02/22/20 10:57 Pulse 94 02/22/20 12:01 Resp 18 02/22/20 12:01 BP 157/89 H 02/22/20 12:47 Pulse Ox 97 02/22/20 12:47 - Orders/Labs/Meds Orders: Active Orders 24 hr Category Date Time Status Patient Status [ADT] Routine ADT 02/22/20 12:55 Ordered Antiembolic Devices [RC] .Routine Care 02/22/20 12:58 Ordered Bladder Scan [RC] ASDIRECTED Care 02/22/20 13:17 Ordered Cardiac Monitoring [RC] .As Directed Care 02/22/20 13:05 Ordered EKG Documentation Completion [RC] ASDIRECTED Care 02/22/20 12:15 Active Height and Weight [RC] DAILY Care 02/22/20 12:55 Ordered Notify Provider Vital Signs [RC] ASDIRECTED Care 02/22/20 12:57 Ordered Overnight Pulse Oximetry [RC] Click to Edit Care 02/22/20 12:03 Active Oxygen Therapy [RC] PRN Care 02/22/20 12:55 Ordered POC Glucose [Blood Glucose Check, Bedside] [RC] QID Care 02/22/20 13:08 Ordered Remove Patel Catheter [Urinary Catheter Removal] [RC] Care 02/22/20 13:15 Ordered Per Unit Routine Up With Assistance [RC] ASDIRECTED Care 02/22/20 12:55 Ordered VTE/DVT Education [RC] Click to Edit Care 02/22/20 12:58 Ordered Vital Signs [RC] PFP Care 02/22/20 12:55 Ordered Regular Diet [DIET] Diet 02/22/20 Dinner Ordered Abdomen 2V AP Flat Upright [CR] Stat Exams 02/22/20 12:01 Ordered CULTURE URINE [RM] Stat Lab 02/22/20 12:28 Received CULTURE URINE [RM] Stat Lab 02/22/20 13:22 Ordered GLYCOSYLATED HEMOGLOBIN,HGBA1C [CHEM] Stat Lab 02/22/20 13:28 Ordered PROCALCITONIN Stat Lab 02/22/20 13:23 Ordered URIC ACID [CHEM] Stat Lab 02/22/20 13:28 Ordered Acetaminophen [Tylenol] Med 02/22/20 12:55 Ordered 650 mg PO Q4H PRN Furosemide [Lasix] Med 02/23/20 08:00 Ordered 10 mg IVPUSH BID Gabapentin [Neurontin] Med 02/22/20 16:00 Ordered 300 mg PO QID Insulin Aspart [NovoLOG] Med 02/22/20 16:00 Ordered See Protocol SUBCUT QID MVI, Adult with Vitamin K [Infuvite Adult] 10 ml Med 02/22/20 13:15 Ordered Thiamine [Vitamin B-1] 100 mg Folic Acid 1 mg Magnesium Sulfate [Magnesium Sulfate 50%] 3 gm Sodium Chloride 0.9% [Normal Saline] 1,000 ml IV ASDIRECTED Magnesium Hydroxide [Milk of Magnesia] Med 02/22/20 12:55 Ordered 30 ml PO BID PRN Na Phos,M-B/Na Phos,DI-B [Fleet Enema] Med 02/22/20 11:13 Ordered 133 ml RECTAL ONETIME PRN Pantoprazole [ProTONIX IV] Med 02/22/20 13:15 Ordered 40 mg IVPUSH Q12H Rivaroxaban [Xarelto] Med 02/22/20 18:00 Ordered 20 mg PO WITHDINNER Sodium Chloride 0.9% [Saline Flush] Med 02/22/20 13:04 Ordered 10 ml FLUSH ASDIRECTED PRN Tamsulosin [Flomax] Med 02/22/20 18:00 Ordered 0.4 mg PO BIDPC Venlafaxine [Effexor XR] Med 02/22/20 20:00 Ordered 37.5 mg PO BEDTIME carvediloL [Coreg] Med 02/22/20 13:30 Ordered 12.5 mg PO BID lisinopriL [Prinivil] Med 02/23/20 08:00 Ordered 2.5 mg PO BID nitrofurantoin macrocrystaL [Macrodantin] Med 02/22/20 16:00 Ordered 50 mg PO QID polyethylene glycoL 3350 [MiraLAX] Med 02/22/20 20:00 Ordered 17 gm PO BID predniSONE Med 02/22/20 13:15 Ordered 40 mg PO DAILY DVT/VTE Prophylaxis Reflex [OM.PC] Per Unit Routine Oth 02/22/20 12:58 Ordered Pulse Oximetry Continuous Monitoring [OM.PC] Routine Oth 02/22/20 12:03 Ordered Medication Orders Acetaminophen (Tylenol) 650 mg PO Q4H PRN PRN Reason: analgesia/fever Carvedilol (Coreg) 12.5 mg PO BID POOL Furosemide (Lasix) 10 mg IVPUSH BID [facility] Gabapentin (Neurontin) 300 mg PO QID [facility] Multivitamins/Minerals 10 ml/Thiamine HCl 100 mg/ Folic Acid 1 mg/ Magnesium Sulfate 3 gm/ Sodium Chloride 1,017.2 mls @ 125 mls/hr IV ASDIRECTED [facility] Insulin Aspart (Novolog) 0 unit SUBCUT QID [facility]; Protocol Lisinopril (Prinivil) 2.5 mg PO BID [facility] Magnesium Hydroxide (Milk Of Magnesia) 30 ml PO BID PRN PRN Reason: Constipation Nitrofurantoin Macrocrystals (Macrodantin) 50 mg PO QID [facility] Pantoprazole Sodium (Protonix Iv) 40 mg IVPUSH Q12H [facility] Polyethylene Glycol (Miralax) 17 gm PO BID [facility] Prednisone (Prednisone) 40 mg PO DAILY [facility] Stop: 02/26/20 13:16 Rivaroxaban (Xarelto) 20 mg PO WITHDINNER [facility] Sodium Biphosphate/Sodium Phosphate (Fleet Enema) 133 ml RECTAL ONETIME PRN PRN Reason: Constipation Sodium Chloride (Saline Flush) 10 ml FLUSH ASDIRECTED PRN PRN Reason: Other Tamsulosin HCl (Flomax) 0.4 mg PO BIDPC [facility] Venlafaxine HCl (Effexor Xr) 37.5 mg PO BEDTIME [facility] Labs: Laboratory Tests 02/22/20 02/22/20 02/22/20 Range/Units 12:15 12:15 12:15 WBC 12.5 H (4.0-11.0) K/uL RBC 4.30 L (4.50-6.50) M/uL Hgb 12.0 L (13.0-18.0) g/dL Hct 36.8 L (40.0-54.0) % MCV 86 (76-96) fL MCH 27.9 (27.0-32.0) pg MCHC 32.6 (31.0-35.0) g/dL RDW 15.3 (11.0-16.0) % Plt Count 344 (150-400) K/uL MPV 8.8 (6.0-10.0) fL Neut % (Auto) 79.2 H (45.0-70.0) % Lymph % (Auto) 10.3 L (20.0-40.0) % [place] % (Auto) 9.4 (3.0-10.0) % Eos % (Auto) 0.9 L (1.0-5.0) % Baso % (Auto) 0.2 (0.0-0.5) % Neut # (Auto) 9.88 H (2.00-7.50) K/uL Lymph # (Auto) 1.29 L (1.50-4.00) K/uL [place] # (Auto) 1.17 H (0.20-0.80) K/uL Eos # (Auto) 0.11 (0.04-0.40) K/uL Baso # (Auto) 0.02 (0.02-0.10) K/uL PT (9.0-11.5) sec INR (1.0-3.5) APTT (24.4-33.2) SECONDS Sodium (136-145) mmol/L Potassium (3.5-5.1) mmol/L Chloride (98-107) mmol/L Carbon Dioxide (21.0-32.0) mmol/L Anion Gap (5.0-15.0) mmol/L BUN (8-26) mg/dL Creatinine (0.70-1.30) mg/dL Est Cr Clr Drug Dosing Estimated GFR (MDRD) (>60) MLS/MIN BUN/Creatinine Ratio (6-25) Glucose (74-100) mg/dL Lactic Acid 1.0 (0.4-2.0) mmol/L Calcium (8.5-10.1) mg/dL Magnesium (1.8-2.4) mg/dL Total Bilirubin (0.0-1.0) mg/dL AST (15-37) U/L ALT (12-78) U/L Alkaline Phosphatase (46-116) U/L Troponin I (0.000-0.060) ng/mL C-Reactive Protein (0.0-3.0) mg/L B-Natriuretic Peptide 7328 H D (0-125) pg/mL Total Protein (6.4-8.2) g/dL Albumin (3.4-5.0) g/dL Globulin (2.2-4.2) g/dL Albumin/Globulin Ratio (0.8-2.0) Amylase 14 L (25-115) U/L TSH, Ultra Sensitive (0.358-3.740) uIU/mL Urine Color Urine Appearance (CLEAR) Urine pH (5.0-8.0) Ur Specific [place] (1.003-1.030) Urine Protein (NEGATIVE) mg/dL Urine Glucose (UA) (NEGATIVE) mg/dL Urine Ketones (NEGATIVE) mg/dL Urine Occult Blood (NEGATIVE) Urine Nitrite (NEGATIVE) Urine Bilirubin (NEGATIVE) Urine Urobilinogen (0.2-1.0) E.U./dL Ur Leukocyte Esterase (NEGATIVE) Urine RBC /HPF Urine WBC /HPF Calcium Oxalate Crystal /HPF Urine Bacteria /HPF 02/22/20 02/22/20 02/22/20 Range/Units 12:15 12:15 12:15 WBC (4.0-11.0) K/uL RBC (4.50-6.50) M/uL Hgb (13.0-18.0) g/dL Hct (40.0-54.0) % MCV (76-96) fL MCH (27.0-32.0) pg MCHC (31.0-35.0) g/dL RDW (11.0-16.0) % Plt Count (150-400) K/uL MPV (6.0-10.0) fL Neut % (Auto) (45.0-70.0) % Lymph % (Auto) (20.0-40.0) % [place] % (Auto) (3.0-10.0) % Eos % (Auto) (1.0-5.0) % Baso % (Auto) (0.0-0.5) % Neut # (Auto) (2.00-7.50) K/uL Lymph # (Auto) (1.50-4.00) K/uL [place] # (Auto) (0.20-0.80) K/uL Eos # (Auto) (0.04-0.40) K/uL Baso # (Auto) (0.02-0.10) K/uL PT 12.1 H (9.0-11.5) sec INR 1.3 (1.0-3.5) APTT 37.7 H (24.4-33.2) SECONDS Sodium 138 (136-145) mmol/L Potassium 3.7 (3.5-5.1) mmol/L Chloride 98 (98-107) mmol/L Carbon Dioxide 28.5 (21.0-32.0) mmol/L Anion Gap 15.2 H (5.0-15.0) mmol/L BUN 14 D (8-26) mg/dL Creatinine 1.35 H (0.70-1.30) mg/dL Est Cr Clr Drug Dosing TNP Estimated GFR (MDRD) 52 L (>60) MLS/MIN BUN/Creatinine Ratio 10.4 (6-25) Glucose 150 H D (74-100) mg/dL Lactic Acid (0.4-2.0) mmol/L Calcium 9.3 (8.5-10.1) mg/dL Magnesium 1.6 L (1.8-2.4) mg/dL Total Bilirubin 0.9 (0.0-1.0) mg/dL AST 18 (15-37) U/L ALT 16 (12-78) U/L Alkaline Phosphatase 60 (46-116) U/L Troponin I < 0.017 D (0.000-0.060) ng/mL C-Reactive Protein 215.3 H (0.0-3.0) mg/L B-Natriuretic Peptide (0-125) pg/mL Total Protein 7.5 (6.4-8.2) g/dL Albumin 2.1 L (3.4-5.0) g/dL Globulin 5.4 H (2.2-4.2) g/dL Albumin/Globulin Ratio 0.4 L (0.8-2.0) Amylase (25-115) U/L TSH, Ultra Sensitive (0.358-3.740) uIU/mL Urine Color Urine Appearance (CLEAR) Urine pH (5.0-8.0) Ur Specific [place] (1.003-1.030) Urine Protein (NEGATIVE) mg/dL Urine Glucose (UA) (NEGATIVE) mg/dL Urine Ketones (NEGATIVE) mg/dL Urine Occult Blood (NEGATIVE) Urine Nitrite (NEGATIVE) Urine Bilirubin (NEGATIVE) Urine Urobilinogen (0.2-1.0) E.U./dL Ur Leukocyte Esterase (NEGATIVE) Urine RBC /HPF Urine WBC /HPF Calcium Oxalate Crystal /HPF Urine Bacteria /HPF 02/22/20 02/22/20 Range/Units 12:15 12:28 WBC (4.0-11.0) K/uL RBC (4.50-6.50) M/uL Hgb (13.0-18.0) g/dL Hct (40.0-54.0) % MCV (76-96) fL MCH (27.0-32.0) pg MCHC (31.0-35.0) g/dL RDW (11.0-16.0) % Plt Count (150-400) K/uL MPV (6.0-10.0) fL Neut % (Auto) (45.0-70.0) % Lymph % (Auto) (20.0-40.0) % [place] % (Auto) (3.0-10.0) % Eos % (Auto) (1.0-5.0) % Baso % (Auto) (0.0-0.5) % Neut # (Auto) (2.00-7.50) K/uL Lymph # (Auto) (1.50-4.00) K/uL [place] # (Auto) (0.20-0.80) K/uL Eos # (Auto) (0.04-0.40) K/uL Baso # (Auto) (0.02-0.10) K/uL PT (9.0-11.5) sec INR (1.0-3.5) APTT (24.4-33.2) SECONDS Sodium (136-145) mmol/L Potassium (3.5-5.1) mmol/L Chloride (98-107) mmol/L Carbon Dioxide (21.0-32.0) mmol/L Anion Gap (5.0-15.0) mmol/L BUN (8-26) mg/dL Creatinine (0.70-1.30) mg/dL Est Cr Clr Drug Dosing Estimated GFR (MDRD) (>60) MLS/MIN BUN/Creatinine Ratio (6-25) Glucose (74-100) mg/dL Lactic Acid (0.4-2.0) mmol/L Calcium (8.5-10.1) mg/dL Magnesium (1.8-2.4) mg/dL Total Bilirubin (0.0-1.0) mg/dL AST (15-37) U/L ALT (12-78) U/L Alkaline Phosphatase (46-116) U/L Troponin I (0.000-0.060) ng/mL C-Reactive Protein (0.0-3.0) mg/L B-Natriuretic Peptide (0-125) pg/mL Total Protein (6.4-8.2) g/dL Albumin (3.4-5.0) g/dL Globulin (2.2-4.2) g/dL Albumin/Globulin Ratio (0.8-2.0) Amylase (25-115) U/L TSH, Ultra Sensitive 1.333 (0.358-3.740) uIU/mL Urine Color Yellow Urine Appearance Clear (CLEAR) Urine pH 7.0 (5.0-8.0) Ur Specific [place] 1.020 (1.003-1.030) Urine Protein 30 H (NEGATIVE) mg/dL Urine Glucose (UA) Negative (NEGATIVE) mg/dL Urine Ketones 15 H (NEGATIVE) mg/dL Urine Occult Blood Moderate H (NEGATIVE) Urine Nitrite Negative (NEGATIVE) Urine Bilirubin Negative (NEGATIVE) Urine Urobilinogen 2.0 H (0.2-1.0) E.U./dL Ur Leukocyte Esterase Trace H (NEGATIVE) Urine RBC 10-20 H /HPF Urine WBC 5-10 H /HPF Calcium Oxalate Crystal Occasional /HPF Urine Bacteria Few /HPF Meds: Medications Generic Name Dose Route Start Last Admin Trade Name Freq PRN Reason Stop Dose Admin Acetaminophen 650 mg 02/22/20 12:55 Tylenol PO Q4H PRN analgesia/fever Carvedilol 12.5 mg 02/22/20 13:30 Coreg PO BID [facility] Furosemide 10 mg 02/23/20 08:00 Lasix IVPUSH BID [facility] Gabapentin 300 mg 02/22/20 16:00 Neurontin PO QID [facility] Multivitamins/Minerals 10 ml/ 1,017.2 mls @ 125 mls/hr 02/22/20 13:15 Thiamine HCl 100 mg/ Folic IV Acid 1 mg/ Magnesium Sulfate 3 ASDIRECTED POOL gm/ Sodium Chloride Insulin Aspart 0 unit 02/22/20 16:00 Novolog SUBCUT QID [facility] Protocol Lisinopril 2.5 mg 02/23/20 08:00 Prinivil PO BID [facility] Magnesium Hydroxide 30 ml 02/22/20 12:55 Milk Of Magnesia PO BID PRN Constipation Nitrofurantoin Macrocrystals 50 mg 02/22/20 16:00 Macrodantin PO QID [facility] Pantoprazole Sodium 40 mg 02/22/20 13:15 Protonix Iv IVPUSH Q12H [facility] Polyethylene Glycol 17 gm 02/22/20 20:00 Miralax PO BID [facility] Prednisone 40 mg 02/22/20 13:15 Prednisone PO 02/26/20 13:16 DAILY [facility] Rivaroxaban 20 mg 02/22/20 18:00 Xarelto PO WITHDINNER [facility] Sodium Biphosphate/Sodium Phosphate 133 ml 02/22/20 11:13 Fleet Enema RECTAL ONETIME PRN Constipation Sodium Chloride 10 ml 02/22/20 13:04 Saline Flush FLUSH ASDIRECTED PRN Other Tamsulosin HCl 0.4 mg 02/22/20 18:00 Flomax PO BIDPC [facility] Venlafaxine HCl 37.5 mg 02/22/20 20:00 Effexor Xr PO BEDTIME [facility] Discontinued Medications Generic Name Dose Route Start Last Admin Trade Name Freq PRN Reason Stop Dose Admin Bisacodyl 10 mg 02/22/20 11:14 02/22/20 11:27 Dulcolax RECTAL 02/22/20 11:15 10 mg ONETIME ONE Administration Bisacodyl Confirm 02/22/20 11:16 02/22/20 11:31 Dulcolax Administered 02/22/20 11:17 Not Given Dose 10 mg .ROUTE .STK-MED ONE Magnesium Hydroxide 30 ml 02/22/20 11:12 02/22/20 11:21 Milk Of Magnesia PO 02/22/20 11:13 30 ml ONETIME ONE Administration Magnesium Hydroxide Confirm 02/22/20 11:16 02/22/20 11:31 Milk Of Magnesia Administered 02/22/20 11:17 Not Given Dose 30 ml .ROUTE .STK-MED ONE Polyethylene Glycol 17 gm 02/22/20 11:13 02/22/20 11:25 Miralax PO 02/22/20 11:14 17 gm ONETIME ONE Administration Polyethylene Glycol Confirm 02/22/20 11:17 02/22/20 11:31 Miralax Administered 02/22/20 11:18 Not Given Dose 17 gm .ROUTE .STK-MED ONE Departure - Departure Time of Disposition: 13:00 Disposition: Admitted As Inpatient 64 Clinical Impression: UTI (urinary tract infection) Qualifiers: Urinary tract infection type: catheter-associated UTI Indwelling urinary catheter type: indwelling urethral catheter Encounter type: subsequent encounter Qualified Code(s): T83.511D - Infection and inflammatory reaction due to indwelling urethral catheter, subsequent encounter; N39.0 - Urinary tract infection, site not specified - Discharge Information Instructions: Constipation, Adult, [id number] Referrals: PCP,None [Primary Care Provider] - Forms: ED Department Discharge Sepsis Event Note - Evaluation Sepsis Screening Result: No Definite Risk - Focused Exam Vital Signs: Vital Signs Temp Pulse Resp BP Pulse Ox 02/22/20 12:47 157/89 H 97 02/22/20 12:01 94 18 178/96 H 94 L 02/22/20 11:56 20 153/77 H 94 L 02/22/20 11:46 93 20 184/96 H 96 02/22/20 11:31 94 20 160/69 H 94 L 02/22/20 10:57 98.8 F 89 20 153/77 H 93 L Date Exam was Performed: 02/22/20 Time Exam was Performed: 13:29 - My Orders Last 24 Hours: My Active Orders 02/22/20 11:13 Na Phos,M-B/Na Phos,DI-B [Fleet Enema] 133 ml RECTAL ONETIME PRN 02/22/20 12:01 Abdomen 2V AP Flat Upright [CR] Stat 02/22/20 12:03 Overnight Pulse Oximetry [RC] Click to Edit Pulse Oximetry Continuous Monitoring [OM.PC] Routine 02/22/20 12:15 EKG Documentation Completion [RC] ASDIRECTED 02/22/20 12:28 CULTURE URINE [RM] Stat 02/22/20 12:55 Patient Status [ADT] Routine Height and Weight [RC] DAILY Oxygen Therapy [RC] PRN Up With Assistance [RC] ASDIRECTED Vital Signs [RC] PFP Acetaminophen [Tylenol] 650 mg PO Q4H PRN Magnesium Hydroxide [Milk of Magnesia] 30 ml PO BID PRN 02/22/20 12:57 Notify Provider Vital Signs [RC] ASDIRECTED 02/22/20 12:58 Antiembolic Devices [RC] .Routine VTE/DVT Education [RC] Click to Edit DVT/VTE Prophylaxis Reflex [OM.PC] Per Unit Routine 02/22/20 13:04 Sodium Chloride 0.9% [Saline Flush] 10 ml FLUSH ASDIRECTED PRN 02/22/20 13:05 Cardiac Monitoring [RC] .As Directed 02/22/20 13:08 POC Glucose [Blood Glucose Check, Bedside] [RC] QID 02/22/20 13:15 Remove Patel Catheter [Urinary Catheter Removal] [RC] Per Unit Routine MVI, Adult with Vitamin K [Infuvite Adult] 10 ml Thiamine [Vitamin B-1] 100 mg Folic Acid 1 mg Magnesium Sulfate [Magnesium Sulfate 50%] 3 gm Sodium Chloride 0.9% [Normal Saline] 1,000 ml IV ASDIRECTED Pantoprazole [ProTONIX IV] 40 mg IVPUSH Q12H predniSONE 40 mg PO DAILY 02/22/20 13:17 Bladder Scan [RC] ASDIRECTED 02/22/20 13:22 CULTURE URINE [RM] Stat 02/22/20 13:23 PROCALCITONIN Stat 02/22/20 13:28 GLYCOSYLATED HEMOGLOBIN,HGBA1C [CHEM] Stat URIC ACID [CHEM] Stat 02/22/20 13:30 carvediloL [Coreg] 12.5 mg PO BID 02/22/20 16:00 Gabapentin [Neurontin] 300 mg PO QID Insulin Aspart [NovoLOG] See Protocol SUBCUT QID nitrofurantoin macrocrystaL [Macrodantin] 50 mg PO QID 02/22/20 18:00 Rivaroxaban [Xarelto] 20 mg PO WITHDINNER Tamsulosin [Flomax] 0.4 mg PO BIDPC 02/22/20 20:00 Venlafaxine [Effexor XR] 37.5 mg PO BEDTIME polyethylene glycoL 3350 [MiraLAX] 17 gm PO BID 02/22/20 Dinner Regular Diet [DIET] 02/23/20 08:00 Furosemide [Lasix] 10 mg IVPUSH BID lisinopriL [Prinivil] 2.5 mg PO BID - Assessment/Plan Last 24 Hours: My Active Orders 02/22/20 11:13 Na Phos,M-B/Na Phos,DI-B [Fleet Enema] 133 ml RECTAL ONETIME PRN 02/22/20 12:01 Abdomen 2V AP Flat Upright [CR] Stat 02/22/20 12:03 Overnight Pulse Oximetry [RC] Click to Edit Pulse Oximetry Continuous Monitoring [OM.PC] Routine 02/22/20 12:15 EKG Documentation Completion [RC] ASDIRECTED 02/22/20 12:28 CULTURE URINE [RM] Stat 02/22/20 12:55 Patient Status [ADT] Routine Height and Weight [RC] DAILY Oxygen Therapy [RC] PRN Up With Assistance [RC] ASDIRECTED Vital Signs [RC] PFP Acetaminophen [Tylenol] 650 mg PO Q4H PRN Magnesium Hydroxide [Milk of Magnesia] 30 ml PO BID PRN 02/22/20 12:57 Notify Provider Vital Signs [RC] ASDIRECTED 02/22/20 12:58 Antiembolic Devices [RC] .Routine VTE/DVT Education [RC] Click to Edit DVT/VTE Prophylaxis Reflex [OM.PC] Per Unit Routine 02/22/20 13:04 Sodium Chloride 0.9% [Saline Flush] 10 ml FLUSH ASDIRECTED PRN 02/22/20 13:05 Cardiac Monitoring [RC] .As Directed 02/22/20 13:08 POC Glucose [Blood Glucose Check, Bedside] [RC] QID 02/22/20 13:15 Remove Patel Catheter [Urinary Catheter Removal] [RC] Per Unit Routine MVI, Adult with Vitamin K [Infuvite Adult] 10 ml Thiamine [Vitamin B-1] 100 mg Folic Acid 1 mg Magnesium Sulfate [Magnesium Sulfate 50%] 3 gm Sodium Chloride 0.9% [Normal Saline] 1,000 ml IV ASDIRECTED Pantoprazole [ProTONIX IV] 40 mg IVPUSH Q12H predniSONE 40 mg PO DAILY 02/22/20 13:17 Bladder Scan [RC] ASDIRECTED 02/22/20 13:22 CULTURE URINE [RM] Stat 02/22/20 13:23 PROCALCITONIN Stat 02/22/20 13:28 GLYCOSYLATED HEMOGLOBIN,HGBA1C [CHEM] Stat URIC ACID [CHEM] Stat 02/22/20 13:30 carvediloL [Coreg] 12.5 mg PO BID 02/22/20 16:00 Gabapentin [Neurontin] 300 mg PO QID Insulin Aspart [NovoLOG] See Protocol SUBCUT QID nitrofurantoin macrocrystaL [Macrodantin] 50 mg PO QID 02/22/20 18:00 Rivaroxaban [Xarelto] 20 mg PO WITHDINNER Tamsulosin [Flomax] 0.4 mg PO BIDPC 02/22/20 20:00 Venlafaxine [Effexor XR] 37.5 mg PO BEDTIME polyethylene glycoL 3350 [MiraLAX] 17 gm PO BID 02/22/20 Dinner Regular Diet [DIET] 02/23/20 08:00 Furosemide [Lasix] 10 mg IVPUSH BID lisinopriL [Prinivil] 2.5 mg PO BID
[2020-02-22] MEDS ORDERED: Magnesium Hydroxide 400 MG/5 ML Susp 30 ML Cup PO PRN (12:55)
[2020-02-22] MEDS ORDERED: Pantoprazole 40 MG Vial IVPUSH SCH (13:15)
[2020-02-22] MEDS ORDERED: MVI, Adult with Vitamin K 10 ML, Thiamine 100 MG, Folic Acid 1 MG, Magnesium Sulfate 3 ... IV SCH ×5 (13:15)
--- NOTE | 2020-02-22 13:36 | PCM.HP.2 ---
H&P History of Present Illness - General Date of Service: 02/22/20 Admit Problem/Dx: Admission Diagnosis/Problem Admission Diagnosis/Problem UTI (urinary tract infection) due to urinary indwelling catheter - History of Present Illness Initial Comments - Free Text/Narative: Please see recent ER documentation for further details. Also, my this documentation from today's ER please serve as my admission history and physical. Abdominal Pain Score (Numeric/FACES): 5 - Related Data Allergies/Adverse Reactions: Allergies Allergy/AdvReac Type Severity Reaction Status Date / Time meperidine HCl [From Demerol] Allergy Headache Verified 02/22/20 11:33 varenicline tartrate Allergy Agitation Verified 02/22/20 11:33 [From Chantix] Home Medications: Home Meds Acetaminophen 650 mg PO TID 02/21/20 [History] Baclofen 5 mg PO BID 02/21/20 [History] Carbidopa/Levodopa [Carbidopa-Levo 25-100 MG ODT] 25 mg PO BEDTIME 02/21/20 [ History] Cholecalciferol (Vitamin D3) [Vitamin D3] 1,000 mg PO BID 02/21/20 [History] Citalopram Hydrobromide [Celexa] 20 mg PO DAILY 02/21/20 [History] Docusate Sodium [Colace] 100 mg PO DAILY 02/21/20 [History] Gabapentin [Neurontin] 600 mg PO BID 02/21/20 [History] Insulin Aspart Prot/Insuln Asp [Insulin Aspart Prot-Insuln Asp] 2 units SQ TID 02/21/20 [History] Insulin Glarg,Human.Rec.Analog [Lantus Solostar] 25 units SQ DAILY 02/21/20 [ History] Oxybutynin Chloride [Ditropan Xl] 10 mg PO DAILY 02/21/20 [History] Pantoprazole [ProTONIX] 40 mg PO DAILY 02/21/20 [History] Potassium Chloride 20 meq PO BID 02/21/20 [History] Rivaroxaban [Xarelto] 20 mg PO DAILY 02/21/20 [History] Simvastatin 80 mg PO BEDTIME 02/21/20 [History] allopurinoL [Zyloprim] 300 mg PO DAILY 02/21/20 [History] amLODIPine [Norvasc] 10 mg PO DAILY 02/21/20 [History] carvediloL [Carvedilol] 12.5 mg PO DAILY 02/21/20 [History] hydrOXYzine HCL [Hydroxyzine HCl] 10 mg PO TID 02/21/20 [History] predniSONE 10 mg PO DAILY 02/21/20 [History] traMADol [Ultram] 50 mg PO TID 02/21/20 [History] Past Medical History Respiratory History: Reports: Sleep Apnea Other Gastrointestinal History: constipation, takes stool softner Social & Family History - Family History Family Medical History: Noncontributory - Tobacco Use Smoking Status *Q: Unknown Ever Smoked - Caffeine Use Caffeine Use: Reports: None - Recreational Drug Use Recreational Drug Use: No H&P Review of Systems - Review of Systems: Review Of Systems: See Below Exam - Exam Exam: See Below - Vital Signs Vital Signs: Last Vital Signs Temp 98.8 F 02/22/20 10:57 Pulse 94 02/22/20 12:01 Resp 18 02/22/20 12:01 BP 157/89 H 02/22/20 12:47 Pulse Ox 97 02/22/20 12:47 - Patient Data Lab Results Last 24 hrs: Laboratory Results - last 24 hr 02/22/20 02/22/20 02/22/20 Range/Units 12:15 12:15 12:15 WBC 12.5 H (4.0-11.0) K/uL RBC 4.30 L (4.50-6.50) M/uL Hgb 12.0 L (13.0-18.0) g/dL Hct 36.8 L (40.0-54.0) % MCV 86 (76-96) fL MCH 27.9 (27.0-32.0) pg MCHC 32.6 (31.0-35.0) g/dL RDW 15.3 (11.0-16.0) % Plt Count 344 (150-400) K/uL MPV 8.8 (6.0-10.0) fL Neut % (Auto) 79.2 H (45.0-70.0) % Lymph % (Auto) 10.3 L (20.0-40.0) % [place] % (Auto) 9.4 (3.0-10.0) % Eos % (Auto) 0.9 L (1.0-5.0) % Baso % (Auto) 0.2 (0.0-0.5) % Neut # (Auto) 9.88 H (2.00-7.50) K/uL Lymph # (Auto) 1.29 L (1.50-4.00) K/uL [place] # (Auto) 1.17 H (0.20-0.80) K/uL Eos # (Auto) 0.11 (0.04-0.40) K/uL Baso # (Auto) 0.02 (0.02-0.10) K/uL PT (9.0-11.5) sec INR (1.0-3.5) APTT (24.4-33.2) SECONDS Sodium (136-145) mmol/L Potassium (3.5-5.1) mmol/L Chloride (98-107) mmol/L Carbon Dioxide (21.0-32.0) mmol/L Anion Gap (5.0-15.0) mmol/L BUN (8-26) mg/dL Creatinine (0.70-1.30) mg/dL Est Cr Clr Drug Dosing Estimated GFR (MDRD) (>60) MLS/MIN BUN/Creatinine Ratio (6-25) Glucose (74-100) mg/dL Lactic Acid 1.0 (0.4-2.0) mmol/L Calcium (8.5-10.1) mg/dL Magnesium (1.8-2.4) mg/dL Total Bilirubin (0.0-1.0) mg/dL AST (15-37) U/L ALT (12-78) U/L Alkaline Phosphatase (46-116) U/L Troponin I (0.000-0.060) ng/mL C-Reactive Protein (0.0-3.0) mg/L B-Natriuretic Peptide 7328 H D (0-125) pg/mL Total Protein (6.4-8.2) g/dL Albumin (3.4-5.0) g/dL Globulin (2.2-4.2) g/dL Albumin/Globulin Ratio (0.8-2.0) Amylase 14 L (25-115) U/L TSH, Ultra Sensitive (0.358-3.740) uIU/mL Urine Color Urine Appearance (CLEAR) Urine pH (5.0-8.0) Ur Specific [place] (1.003-1.030) Urine Protein (NEGATIVE) mg/dL Urine Glucose (UA) (NEGATIVE) mg/dL Urine Ketones (NEGATIVE) mg/dL Urine Occult Blood (NEGATIVE) Urine Nitrite (NEGATIVE) Urine Bilirubin (NEGATIVE) Urine Urobilinogen (0.2-1.0) E.U./dL Ur Leukocyte Esterase (NEGATIVE) Urine RBC /HPF Urine WBC /HPF Calcium Oxalate Crystal /HPF Urine Bacteria /HPF 02/22/20 02/22/20 02/22/20 Range/Units 12:15 12:15 12:15 WBC (4.0-11.0) K/uL RBC (4.50-6.50) M/uL Hgb (13.0-18.0) g/dL Hct (40.0-54.0) % MCV (76-96) fL MCH (27.0-32.0) pg MCHC (31.0-35.0) g/dL RDW (11.0-16.0) % Plt Count (150-400) K/uL MPV (6.0-10.0) fL Neut % (Auto) (45.0-70.0) % Lymph % (Auto) (20.0-40.0) % [place] % (Auto) (3.0-10.0) % Eos % (Auto) (1.0-5.0) % Baso % (Auto) (0.0-0.5) % Neut # (Auto) (2.00-7.50) K/uL Lymph # (Auto) (1.50-4.00) K/uL [place] # (Auto) (0.20-0.80) K/uL Eos # (Auto) (0.04-0.40) K/uL Baso # (Auto) (0.02-0.10) K/uL PT 12.1 H (9.0-11.5) sec INR 1.3 (1.0-3.5) APTT 37.7 H (24.4-33.2) SECONDS Sodium 138 (136-145) mmol/L Potassium 3.7 (3.5-5.1) mmol/L Chloride 98 (98-107) mmol/L Carbon Dioxide 28.5 (21.0-32.0) mmol/L Anion Gap 15.2 H (5.0-15.0) mmol/L BUN 14 D (8-26) mg/dL Creatinine 1.35 H (0.70-1.30) mg/dL Est Cr Clr Drug Dosing TNP Estimated GFR (MDRD) 52 L (>60) MLS/MIN BUN/Creatinine Ratio 10.4 (6-25) Glucose 150 H D (74-100) mg/dL Lactic Acid (0.4-2.0) mmol/L Calcium 9.3 (8.5-10.1) mg/dL Magnesium 1.6 L (1.8-2.4) mg/dL Total Bilirubin 0.9 (0.0-1.0) mg/dL AST 18 (15-37) U/L ALT 16 (12-78) U/L Alkaline Phosphatase 60 (46-116) U/L Troponin I < 0.017 D (0.000-0.060) ng/mL C-Reactive Protein 215.3 H (0.0-3.0) mg/L B-Natriuretic Peptide (0-125) pg/mL Total Protein 7.5 (6.4-8.2) g/dL Albumin 2.1 L (3.4-5.0) g/dL Globulin 5.4 H (2.2-4.2) g/dL Albumin/Globulin Ratio 0.4 L (0.8-2.0) Amylase (25-115) U/L TSH, Ultra Sensitive (0.358-3.740) uIU/mL Urine Color Urine Appearance (CLEAR) Urine pH (5.0-8.0) Ur Specific [place] (1.003-1.030) Urine Protein (NEGATIVE) mg/dL Urine Glucose (UA) (NEGATIVE) mg/dL Urine Ketones (NEGATIVE) mg/dL Urine Occult Blood (NEGATIVE) Urine Nitrite (NEGATIVE) Urine Bilirubin (NEGATIVE) Urine Urobilinogen (0.2-1.0) E.U./dL Ur Leukocyte Esterase (NEGATIVE) Urine RBC /HPF Urine WBC /HPF Calcium Oxalate Crystal /HPF Urine Bacteria /HPF 02/22/20 02/22/20 Range/Units 12:15 12:28 WBC (4.0-11.0) K/uL RBC (4.50-6.50) M/uL Hgb (13.0-18.0) g/dL Hct (40.0-54.0) % MCV (76-96) fL MCH (27.0-32.0) pg MCHC (31.0-35.0) g/dL RDW (11.0-16.0) % Plt Count (150-400) K/uL MPV (6.0-10.0) fL Neut % (Auto) (45.0-70.0) % Lymph % (Auto) (20.0-40.0) % [place] % (Auto) (3.0-10.0) % Eos % (Auto) (1.0-5.0) % Baso % (Auto) (0.0-0.5) % Neut # (Auto) (2.00-7.50) K/uL Lymph # (Auto) (1.50-4.00) K/uL [place] # (Auto) (0.20-0.80) K/uL Eos # (Auto) (0.04-0.40) K/uL Baso # (Auto) (0.02-0.10) K/uL PT (9.0-11.5) sec INR (1.0-3.5) APTT (24.4-33.2) SECONDS Sodium (136-145) mmol/L Potassium (3.5-5.1) mmol/L Chloride (98-107) mmol/L Carbon Dioxide (21.0-32.0) mmol/L Anion Gap (5.0-15.0) mmol/L BUN (8-26) mg/dL Creatinine (0.70-1.30) mg/dL Est Cr Clr Drug Dosing Estimated GFR (MDRD) (>60) MLS/MIN BUN/Creatinine Ratio (6-25) Glucose (74-100) mg/dL Lactic Acid (0.4-2.0) mmol/L Calcium (8.5-10.1) mg/dL Magnesium (1.8-2.4) mg/dL Total Bilirubin (0.0-1.0) mg/dL AST (15-37) U/L ALT (12-78) U/L Alkaline Phosphatase (46-116) U/L Troponin I (0.000-0.060) ng/mL C-Reactive Protein (0.0-3.0) mg/L B-Natriuretic Peptide (0-125) pg/mL Total Protein (6.4-8.2) g/dL Albumin (3.4-5.0) g/dL Globulin (2.2-4.2) g/dL Albumin/Globulin Ratio (0.8-2.0) Amylase (25-115) U/L TSH, Ultra Sensitive 1.333 (0.358-3.740) uIU/mL Urine Color Yellow Urine Appearance Clear (CLEAR) Urine pH 7.0 (5.0-8.0) Ur Specific [place] 1.020 (1.003-1.030) Urine Protein 30 H (NEGATIVE) mg/dL Urine Glucose (UA) Negative (NEGATIVE) mg/dL Urine Ketones 15 H (NEGATIVE) mg/dL Urine Occult Blood Moderate H (NEGATIVE) Urine Nitrite Negative (NEGATIVE) Urine Bilirubin Negative (NEGATIVE) Urine Urobilinogen 2.0 H (0.2-1.0) E.U./dL Ur Leukocyte Esterase Trace H (NEGATIVE) Urine RBC 10-20 H /HPF Urine WBC 5-10 H /HPF Calcium Oxalate Crystal Occasional /HPF Urine Bacteria Few /HPF Result Diagrams: 02/22/20 12:15 02/22/20 12:15 Sepsis Event Note - Evaluation Sepsis Screening Result: No Definite Risk - Focused Exam Vital Signs: Vital Signs Temp Pulse Resp BP Pulse Ox 02/22/20 12:47 157/89 H 97 02/22/20 12:01 94 18 178/96 H 94 L 02/22/20 11:56 20 153/77 H 94 L 02/22/20 11:46 93 20 184/96 H 96 02/22/20 11:31 94 20 160/69 H 94 L 02/22/20 10:57 98.8 F 89 20 153/77 H 93 L Date Exam was Performed: 02/22/20 Time Exam was Performed: 13:31 Problem List Initiated/Reviewed/Updated: Yes Orders Last 24hrs: Active Orders 24 hr Category Date Time Status Patient Status [ADT] Routine ADT 02/22/20 12:55 Ordered Antiembolic Devices [RC] .Routine Care 02/22/20 12:58 Ordered Bladder Scan [RC] ASDIRECTED Care 02/22/20 13:17 Ordered Cardiac Monitoring [RC] .As Directed Care 02/22/20 13:05 Ordered EKG Documentation Completion [RC] ASDIRECTED Care 02/22/20 12:15 Active Height and Weight [RC] DAILY Care 02/22/20 12:55 Ordered Notify Provider Vital Signs [RC] ASDIRECTED Care 02/22/20 12:57 Ordered Overnight Pulse Oximetry [RC] Click to Edit Care 02/22/20 12:03 Active Oxygen Therapy [RC] PRN Care 02/22/20 12:55 Ordered POC Glucose [Blood Glucose Check, Bedside] [RC] QID Care 02/22/20 13:08 Ordered Remove Patel Catheter [Urinary Catheter Removal] [RC] Care 02/22/20 13:15 Ordered Per Unit Routine Up With Assistance [RC] ASDIRECTED Care 02/22/20 12:55 Ordered VTE/DVT Education [RC] Click to Edit Care 02/22/20 12:58 Ordered Vital Signs [RC] PFP Care 02/22/20 12:55 Ordered Regular Diet [DIET] Diet 02/22/20 Dinner Ordered Abdomen 2V AP Flat Upright [CR] Stat Exams 02/22/20 12:01 Ordered CULTURE URINE [RM] Stat Lab 02/22/20 12:28 Received CULTURE URINE [RM] Stat Lab 02/22/20 13:22 Ordered GLYCOSYLATED HEMOGLOBIN,HGBA1C [CHEM] Stat Lab 02/22/20 13:28 Ordered PROCALCITONIN Stat Lab 02/22/20 13:23 Ordered URIC ACID [CHEM] Stat Lab 02/22/20 13:28 Ordered Acetaminophen [Tylenol] Med 02/22/20 12:55 Ordered 650 mg PO Q4H PRN Furosemide [Lasix] Med 02/23/20 08:00 Ordered 10 mg IVPUSH BID Gabapentin [Neurontin] Med 02/22/20 16:00 Ordered 300 mg PO QID Insulin Aspart [NovoLOG] Med 02/22/20 16:00 Ordered See Protocol SUBCUT QID MVI, Adult with Vitamin K [Infuvite Adult] 10 ml Med 02/22/20 13:15 Ordered Thiamine [Vitamin B-1] 100 mg Folic Acid 1 mg Magnesium Sulfate [Magnesium Sulfate 50%] 3 gm Sodium Chloride 0.9% [Normal Saline] 1,000 ml IV ASDIRECTED Magnesium Hydroxide [Milk of Magnesia] Med 02/22/20 12:55 Ordered 30 ml PO BID PRN Na Phos,M-B/Na Phos,DI-B [Fleet Enema] Med 02/22/20 11:13 Ordered 133 ml RECTAL ONETIME PRN Pantoprazole [ProTONIX IV] Med 02/22/20 13:15 Ordered 40 mg IVPUSH Q12H Rivaroxaban [Xarelto] Med 02/22/20 18:00 Ordered 20 mg PO WITHDINNER Sodium Chloride 0.9% [Saline Flush] Med 02/22/20 13:04 Ordered 10 ml FLUSH ASDIRECTED PRN Tamsulosin [Flomax] Med 02/22/20 18:00 Ordered 0.4 mg PO BIDPC Venlafaxine [Effexor XR] Med 02/22/20 20:00 Ordered 37.5 mg PO BEDTIME carvediloL [Coreg] Med 02/22/20 13:30 Ordered 12.5 mg PO BID lisinopriL [Prinivil] Med 02/23/20 08:00 Ordered 2.5 mg PO BID nitrofurantoin macrocrystaL [Macrodantin] Med 02/22/20 16:00 Ordered 50 mg PO QID polyethylene glycoL 3350 [MiraLAX] Med 02/22/20 20:00 Ordered 17 gm PO BID predniSONE Med 02/22/20 13:15 Ordered 40 mg PO DAILY DVT/VTE Prophylaxis Reflex [OM.PC] Per Unit Routine Oth 02/22/20 12:58 Ordered Pulse Oximetry Continuous Monitoring [OM.PC] Routine Oth 02/22/20 12:03 Ordered Medication Orders Acetaminophen (Tylenol) 650 mg PO Q4H PRN PRN Reason: analgesia/fever Carvedilol (Coreg) 12.5 mg PO BID POOL Furosemide (Lasix) 10 mg IVPUSH BID POOL Gabapentin (Neurontin) 300 mg PO QID POOL Multivitamins/Minerals 10 ml/Thiamine HCl 100 mg/ Folic Acid 1 mg/ Magnesium Sulfate 3 gm/ Sodium Chloride 1,017.2 mls @ 125 mls/hr IV ASDIRECTED POOL Insulin Aspart (Novolog) 0 unit SUBCUT QID POOL; Protocol Lisinopril (Prinivil) 2.5 mg PO BID POOL Magnesium Hydroxide (Milk Of Magnesia) 30 ml PO BID PRN PRN Reason: Constipation Nitrofurantoin Macrocrystals (Macrodantin) 50 mg PO QID [facility] Pantoprazole Sodium (Protonix Iv) 40 mg IVPUSH Q12H [facility] Polyethylene Glycol (Miralax) 17 gm PO BID [facility] Prednisone (Prednisone) 40 mg PO DAILY [facility] Stop: 02/26/20 13:16 Rivaroxaban (Xarelto) 20 mg PO WITHDINNER [facility] Sodium Biphosphate/Sodium Phosphate (Fleet Enema) 133 ml RECTAL ONETIME PRN PRN Reason: Constipation Sodium Chloride (Saline Flush) 10 ml FLUSH ASDIRECTED PRN PRN Reason: Other Tamsulosin HCl (Flomax) 0.4 mg PO BIDPC POOL Venlafaxine HCl (Effexor Xr) 37.5 mg PO BEDTIME [facility] Assessment/Plan Comment:: Bryce has had a very complex case. 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 He just got home a couple weeks back. It appears that he is failing outpatient management, by any means. He has called the ambulance at least twice. Today he is presenting with a complication of the oxycodone that we provided him over the last couple of days, I am sure. It is not clear exactly what is going on with his medications at home, although it sounds like his and others involved have some definite increased help coming to their home at this point. Either way, given pills with lack of response to a bowel routine, and recheck of his labs trending in a worsening direction, particularly in regard to his tendency to get septic in the past, I explained to rByce that it certainly would be reasonable to admit him for more intensive management of his multiple medical concerns. Certainly he would be an excellent candidate for physical therapy, and Occupational Therapy. I would certainly think that if anyone deserved a public health nurse, it would be him, but I am not sure exactly how are limited resources are activated in that capacity. If nothing more, having pill packs or some sort of blister packaging on his meds may be helpful. It seems of his chronic concerns his diabetes is less of an issue, and has chronic kidney disease which appears improved from his most previous baseline in terms of his creatinine today, and CHF, merit a trial on another LIANA inhibitor and/or ARB. All this is certainly complicated by his lack of significant blood pressure, although it has consistently been elevated, and this could quite reasonably be due to pain.
[2020-02-22] MEDS ORDERED: oxyCODONE ER 10 MG TAB.ER PO PRN (13:38)
[2020-02-22] MEDS: Gabapentin 300 MG Cap PO SCH ×2 (15:15→20:09)
[2020-02-22] MEDS: Carvedilol 12.5 MG Tab PO SCH ×2 (15:15→20:09)
[2020-02-22] MEDS: Nitrofurantoin Macrocrystal 50 MG Cap PO SCH ×2 (15:15→20:09)
[2020-02-22] MEDS: predniSONE 20 MG Tab PO SCH (15:15)
[2020-02-22 15:47] LABS: HEMOGLOBIN A1C 7.7 % (< 5.7)
[2020-02-22] MEDS ORDERED: Insulin Aspart 100 Units/ML 3 ML Pen SUBCUT SCH (16:00)
[2020-02-22] MEDS: Insulin Aspart 100 Units/ML 3 ML Pen SUBCUT SCH ×2 (18:15→20:28)
[2020-02-22] MEDS ORDERED: Rivaroxaban 10 MG Tab ONE (18:17)
[2020-02-22] MEDS: Tamsulosin 0.4 MG Cap.ER PO SCH (18:20)
[2020-02-22] MEDS ORDERED: Furosemide 40 MG/4 ML VIAL IVPUSH STA (18:58)
[2020-02-22] MEDS ORDERED: Lisinopril 2.5 MG Tab PO STA (18:59)
[2020-02-22] MEDS ORDERED: Menthol/Zinc Oxide Ointment 113 GM Tube TOP ONE (19:41)
[2020-02-22] MEDS ORDERED: Venlafaxine 37.5 MG Cap.ER PO SCH (20:00)
[2020-02-22] MEDS: Pantoprazole 40 MG Vial IVPUSH SCH (20:08)
[2020-02-22] MEDS: Acetaminophen 325 MG Tab PO PRN (20:09)
[2020-02-22] MEDS: Polyethylene Glycol 3350 Powder 17 GM Packet PO SCH (23:38)
[2020-02-23] MEDS: Pantoprazole 40 MG Vial IVPUSH SCH (07:54)
[2020-02-23] MEDS ORDERED: Lisinopril 2.5 MG Tab PO SCH (08:00)
[2020-02-23] MEDS ORDERED: Furosemide 40 MG/4 ML VIAL IVPUSH SCH (08:00)
[2020-02-23] MEDS: Tamsulosin 0.4 MG Cap.ER PO SCH ×2 (08:04→17:25)
[2020-02-23] MEDS: Nitrofurantoin Macrocrystal 50 MG Cap PO SCH ×2 (08:05→11:55)
[2020-02-23] MEDS: Gabapentin 300 MG Cap PO SCH ×4 (08:05→20:56)
[2020-02-23] MEDS: predniSONE 20 MG Tab PO SCH (08:05)
[2020-02-23] MEDS: Carvedilol 12.5 MG Tab PO SCH ×2 (08:05→20:56)
[2020-02-23] MEDS: Polyethylene Glycol 3350 Powder 17 GM Packet PO SCH (08:06)
[2020-02-23] MEDS: Insulin Aspart 100 Units/ML 3 ML Pen SUBCUT SCH ×2 (08:09→11:55)
[2020-02-23] MEDS: traMADol 50 MG Tab PO PRN ×2 (08:25→14:18)
--- NOTE | 2020-02-23 15:15 | PCM.PN ---
- General Info Date of Service: 02/23/20 Subjective Update: No new issues Pain controlled Tolerating voiding trial Watch to exclude UTI as seems more colonized from prolonged-enough indwelling Patel Functional Status: Reports: Pain Controlled, Tolerating Diet, Urinating - Patient Data Vitals - Most Recent: Last Vital Signs Temp 99.0 F 02/23/20 12:00 Pulse 88 02/23/20 12:00 Resp 17 02/23/20 12:00 BP 118/65 02/23/20 12:00 Pulse Ox 97 02/23/20 15:04 Weight - Most Recent: 241 lb 9.6 oz I&O - Last 24 Hours: Intake & Output 02/23/20 02/23/20 02/23/20 06:59 14:59 22:59 Intake Total 675 Output Total 3 Balance 672 Lab Results Last 24 Hours: Laboratory Results - last 24 hr 02/22/20 02/22/20 02/22/20 Range/Units 12:15 12:15 16:06 POC Glucose 159 H (74-110) mg/dL Hemoglobin A1c 7.7 H (< 5.7) % Uric Acid 4.2 (2.6-7.2) mg/dL 02/23/20 02/23/20 Range/Units 07:23 11:52 POC Glucose 186 H 226 H (74-110) mg/dL Hemoglobin A1c (< 5.7) % Uric Acid (2.6-7.2) mg/dL Abhi Results Last 24 Hours: Microbiology 02/22/20 15:00 MRSA Surveillance Culture - Final Nares, Unspecified NO MRSA ISOLATED 02/22/20 12:28 Urine Culture - Preliminary Urine, Voided Gram Positive Cocci Gram Negative Rods Med Orders - Current: Current Medications Acetaminophen (Tylenol) 650 mg PO Q4H PRN PRN Reason: analgesia/fever Last Admin: 02/22/20 20:09 Dose: 650 mg Allopurinol (Zyloprim) 100 mg PO DAILY [facility] Carbidopa/Levodopa (Sinemet 25-100 Mg) 1 tab PO DAILY [facility] Carvedilol (Coreg) 12.5 mg PO BID [facility] Last Admin: 02/23/20 08:05 Dose: 12.5 mg Furosemide (Lasix) 10 mg IVPUSH BID [facility] Last Admin: 02/23/20 07:59 Dose: 10 mg Gabapentin (Neurontin) 300 mg PO QID [facility] Last Admin: 02/23/20 11:55 Dose: 300 mg Multivitamins/Minerals 10 ml/Thiamine HCl 100 mg/ Folic Acid 1 mg/ Magnesium Sulfate 3 gm/ Sodium Chloride 1,017.2 mls @ 125 mls/hr IV ASDIRECTED [facility] Last Admin: 02/22/20 15:15 Dose: 125 mls/hr Insulin Aspart (Novolog) 0 unit SUBCUT 0800,1200,1700,2000 [facility]; Protocol Last Admin: 02/23/20 11:55 Dose: 2 unit Lisinopril (Prinivil) 2.5 mg PO BID [facility] Last Admin: 02/23/20 08:04 Dose: 2.5 mg Magnesium Hydroxide (Milk Of Magnesia) 30 ml PO BID PRN PRN Reason: Constipation Nitrofurantoin Macrocrystals (Macrodantin) 50 mg PO QID [facility] Last Admin: 02/23/20 11:55 Dose: 50 mg Pantoprazole Sodium (Protonix Iv) 40 mg IVPUSH BID [facility] Last Admin: 02/23/20 07:54 Dose: 40 mg Polyethylene Glycol (Miralax) 17 gm PO BID [facility] Last Admin: 02/23/20 08:06 Dose: 17 gm Prednisone (Prednisone) 40 mg PO DAILY [facility] Stop: 02/26/20 13:16 Last Admin: 02/23/20 08:05 Dose: 40 mg Rivaroxaban (Xarelto) 20 mg PO WITHDINNER [facility] Last Admin: 02/22/20 18:21 Dose: 20 mg Sodium Chloride (Saline Flush) 10 ml FLUSH ASDIRECTED PRN PRN Reason: Other [facility] Last Admin: 02/23/20 08:04 Dose: 0.4 mg Tramadol HCl (Ultram) 100 mg PO Q6H PRN PRN Reason: Pain Last Admin: 02/23/20 14:18 Dose: 100 mg Venlafaxine HCl (Effexor Xr) 37.5 mg PO BEDTIME [facility] Last Admin: 02/22/20 20:11 Dose: 37.5 mg Discontinued Medications Bisacodyl (Dulcolax) 10 mg RECTAL ONETIME ONE Stop: 02/22/20 11:15 Last Admin: 02/22/20 11:27 Dose: 10 mg Bisacodyl (Dulcolax) Confirm Administered Dose 10 mg .ROUTE .STK-MED ONE Stop: 02/22/20 11:17 Last Admin: 02/22/20 11:31 Dose: Not Given Calamine/Phenol (Calmoseptine) Confirm Administered Dose 113 gm TOP .STK-MED ONE Stop: 02/22/20 19:42 Last Admin: 02/22/20 20:11 Dose: 1 applic Furosemide (Lasix) 10 mg IVPUSH NOW STA Stop: 02/22/20 18:59 Last Admin: 02/22/20 20:08 Dose: 10 mg Insulin Aspart (Novolog) 0 unit SUBCUT QID POOL; Protocol Lisinopril (Prinivil) 2.5 mg PO NOW STA Stop: 02/22/20 19:00 Last Admin: 02/22/20 20:10 Dose: 2.5 mg Magnesium Hydroxide (Milk Of Magnesia) 30 ml PO ONETIME ONE Stop: 02/22/20 11:13 Last Admin: 02/22/20 11:21 Dose: 30 ml Magnesium Hydroxide (Milk Of Magnesia) Confirm Administered Dose 30 ml .ROUTE .STK-MED ONE Stop: 02/22/20 11:17 Last Admin: 02/22/20 11:31 Dose: Not Given Pantoprazole Sodium (Protonix Iv) 40 mg IVPUSH Q12H POOL Last Admin: 02/22/20 15:15 Dose: 40 mg Polyethylene Glycol (Miralax) 17 gm PO ONETIME ONE Stop: 02/22/20 11:14 Last Admin: 02/22/20 11:25 Dose: 17 gm Polyethylene Glycol (Miralax) Confirm Administered Dose 17 gm .ROUTE .STK-MED ONE Stop: 02/22/20 11:18 Last Admin: 02/22/20 11:31 Dose: Not Given Rivaroxaban (Xarelto) Confirm Administered Dose 20 mg .ROUTE .STK-MED ONE Stop: 02/22/20 18:18 Last Admin: 02/23/20 07:03 Dose: Not Given - Exam Quality Assessment: Supplemental Oxygen, DVT Prophylaxis. No: Urine Catheter General: Alert, Oriented, Cooperative, No Acute Distress. No: Mild Distress, Moderate Distress, Severe Distress, Sedated, Lethargic, Obtunded HEENT: Pupils Equal, EOMI, Mucous Membr. Moist/[place]. No: Scleral Icterus Neck: Supple, No JVD. No: Thyromegaly Lungs: Clear to Auscultation, Normal Respiratory Effort, Decreased Breath Sounds (bibasilar) Cardiovascular: Regular Rate, Regular Rhythm, No Murmurs GI/Abdominal Exam: Normal Bowel Sounds, Soft, Non-Tender Back Exam: Normal Inspection, Full Range of Motion, Muscle Spasm Extremities: Normal Inspection, Normal Range of Motion, Normal Capillary Refill Skin: Warm, Dry, Intact Neurological: No New Focal Deficit Psy/Mental Status: Alert, Normal Affect, Normal Mood Sepsis Event Note - Evaluation Sepsis Screening Result: No Definite Risk - Focused Exam Vital Signs: Vital Signs Temp Pulse Pulse Resp BP BP Pulse Ox 02/23/20 15:04 97 02/23/20 14:00 02/23/20 12:00 99.0 F 88 17 118/65 97 02/23/20 08:05 79 142/81 H 02/23/20 08:04 142/81 H 02/23/20 07:29 97.7 F 78 20 142/81 H 97 02/23/20 04:00 82 16 96 Pulse Ox 02/23/20 15:04 02/23/20 14:00 98 02/23/20 12:00 02/23/20 08:05 02/23/20 08:04 02/23/20 07:29 02/23/20 04:00 Date Exam was Performed: 02/23/20 Time Exam was Performed: 15:07 - Problem List Review Problem List Initiated/Reviewed/Updated: No - My Orders Last 24 Hours: My Active Orders 02/22/20 16:00 Gabapentin [Neurontin] 300 mg PO QID nitrofurantoin macrocrystaL [Macrodantin] 50 mg PO QID 02/22/20 17:00 Insulin Aspart [NovoLOG] 0 unit SUBCUT 0800,1200,1700,2000 02/22/20 18:00 Rivaroxaban [Xarelto] 20 mg PO WITHDINNER Tamsulosin [Flomax] 0.4 mg PO BIDPC 02/22/20 20:00 Pantoprazole [ProTONIX IV] 40 mg IVPUSH BID Venlafaxine [Effexor XR] 37.5 mg PO BEDTIME polyethylene glycoL 3350 [MiraLAX] 17 gm PO BID 02/22/20 Dinner Regular Diet [DIET] 02/23/20 07:13 Code Status [Resuscitation Status] Routine 02/23/20 08:00 Furosemide [Lasix] 10 mg IVPUSH BID lisinopriL [Prinivil] 2.5 mg PO BID 02/23/20 14:26 UA RFX ABHI AND CULT IF INDIC [URIN] Urgent 02/23/20 14:30 allopurinoL [Zyloprim] 100 mg PO DAILY 02/23/20 21:00 Carbidopa/Levodopa [Sinemet 25-100 mg] 1 tab PO DAILY - Assessment Assessment:: Continue to r/o UTI GNR in urine culture- difficult to exclude prostatic involvement ??benefit from background nitrofurantoin (vs diminished concentration in urinary tubules) but prostate is highly vascularized so should buy time for observation; and consideration of single-dose fosfomycin pending urine cultures consider recheck labs and/or potential infectious markers (procalcitonin, CRP, lactate, etc) - Plan Plan:: Bryce has had a very complex case. 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 He just got home a couple weeks back. It appears that he is failing outpatient management, by any means. He has called the ambulance at least twice. Today he is presenting with a complication of the oxycodone that we provided him over the last couple of days, I am sure. It is not clear exactly what is going on with his medications at home, although it sounds like his and others involved have some definite increased help coming to their home at this point. Either way, given pills with lack of response to a bowel routine, and recheck of his labs trending in a worsening direction, particularly in regard to his tendency to get septic in the past, I explained to Bryce that it certainly would be reasonable to admit him for more intensive management of his multiple medical concerns. Certainly he would be an excellent candidate for physical therapy, and Occupational Therapy. I would certainly think that if anyone deserved a public health nurse, it would be him, but I am not sure exactly how are limited resources are activated in that capacity. If nothing more, having pill packs or some sort of blister packaging on his meds may be helpful. It seems of his chronic concerns his diabetes is less of an issue, and has chronic kidney disease which appears improved from his most previous baseline in terms of his creatinine today, and CHF, merit a trial on another LIANA inhibitor and/or ARB. All this is certainly complicated by his lack of significant blood pressure, although it has consistently been elevated, and this could quite reasonably be due to pain.
[2020-02-23] MEDS ORDERED: Sodium Chloride 0.9% 10 ML Syringe FLUSH PRN (15:19)
[2020-02-23] MEDS ORDERED: Rivaroxaban 10 MG Tab ONE (17:20)
[2020-02-23] MEDS ORDERED: Allopurinol 100 MG Tab ONE (17:28)
[2020-02-23] MEDS: Allopurinol 100 MG Tab PO SCH (17:29)
[2020-02-23] MEDS: tiZANidine 2 MG Cap PO SCH ×2 (18:16→20:58)
[2020-02-23] MEDS: Venlafaxine 75 MG Cap.ER PO SCH (20:56)
[2020-02-23] MEDS: Lisinopril 5 MG Tab PO SCH (20:57)
[2020-02-23] MEDS: Carbidopa/Levodopa 25-100 MG Tab PO SCH (21:27)
[2020-02-24] MEDS: Furosemide 20 MG/2 ML VIAL IVPUSH SCH (08:01)
[2020-02-24] MEDS: Carvedilol 12.5 MG Tab PO SCH ×2 (08:01→20:33)
[2020-02-24] MEDS: Allopurinol 100 MG Tab PO SCH (08:03)
[2020-02-24] MEDS: Lisinopril 5 MG Tab PO SCH ×2 (08:03→20:34)
[2020-02-24] MEDS: predniSONE 20 MG Tab PO SCH (08:04)
[2020-02-24] MEDS: Gabapentin 300 MG Cap PO SCH ×4 (08:04→20:33)
[2020-02-24] MEDS: tiZANidine 2 MG Cap PO SCH ×4 (08:11→22:43)
[2020-02-24] MEDS: Tamsulosin 0.4 MG Cap.ER PO SCH ×2 (08:51→17:02)
--- NOTE | 2020-02-24 11:07 | PCM.PN ---
- General Info Date of Service: 02/24/20 Subjective Update: No new issues. Some loose stools. No use of oxycodone prn for breakthrough. Feels appetite is coming along. Declines ongoing supplemental insulin scale and will not be doing at home. Prednisone for stress dosing No clear evidence of UTI Antimicrobial spectrum of pertinence Functional Status: Reports: Pain Controlled, Tolerating Diet, Urinating - Review of Systems General: Reports: No Symptoms Pulmonary: Reports: No Symptoms Cardiovascular: Reports: No Symptoms - Patient Data Vitals - Most Recent: Last Vital Signs Temp 98.8 F 02/24/20 07:38 Pulse 72 02/24/20 08:01 Resp 18 02/24/20 07:38 BP 126/76 02/24/20 08:03 Pulse Ox 96 02/24/20 07:38 Weight - Most Recent: 246 lb I&O - Last 24 Hours: Intake & Output 02/23/20 02/24/20 02/24/20 22:59 06:59 14:59 Intake Total 1800 480 Output Total 300 Balance 1500 480 Lab Results Last 24 Hours: Laboratory Results - last 24 hr 02/23/20 02/23/20 02/23/20 Range/Units 11:52 16:33 17:09 WBC (4.0-11.0) K/uL RBC (4.50-6.50) M/uL Hgb (13.0-18.0) g/dL Hct (40.0-54.0) % MCV (76-96) fL MCH (27.0-32.0) pg MCHC (31.0-35.0) g/dL RDW (11.0-16.0) % Plt Count (150-400) K/uL MPV (6.0-10.0) fL Neut % (Auto) (45.0-70.0) % Lymph % (Auto) (20.0-40.0) % [place] % (Auto) (3.0-10.0) % Eos % (Auto) (1.0-5.0) % Baso % (Auto) (0.0-0.5) % Neut # (Auto) (2.00-7.50) K/uL Lymph # (Auto) (1.50-4.00) K/uL [place] # (Auto) (0.20-0.80) K/uL Eos # (Auto) (0.04-0.40) K/uL Baso # (Auto) (0.02-0.10) K/uL Sodium (136-145) mmol/L Potassium (3.5-5.1) mmol/L Chloride (98-107) mmol/L Carbon Dioxide (21.0-32.0) mmol/L Anion Gap (5.0-15.0) mmol/L BUN (8-26) mg/dL Creatinine (0.70-1.30) mg/dL Est Cr Clr Drug Dosing mL/min Estimated GFR (MDRD) (>60) MLS/MIN BUN/Creatinine Ratio (6-25) Glucose (74-100) mg/dL POC Glucose 226 H 289 H (74-110) mg/dL Calcium (8.5-10.1) mg/dL Magnesium (1.8-2.4) mg/dL Total Bilirubin (0.0-1.0) mg/dL AST (15-37) U/L ALT (12-78) U/L Alkaline Phosphatase (46-116) U/L C-Reactive Protein (0.0-3.0) mg/L B-Natriuretic Peptide (0-125) pg/mL Total Protein (6.4-8.2) g/dL Albumin (3.4-5.0) g/dL Globulin (2.2-4.2) g/dL Albumin/Globulin Ratio (0.8-2.0) Prostate Specific Ag (0.00-4.00) ng/mL Urine Color Yellow Urine Appearance Clear (CLEAR) Urine pH 5.5 (5.0-8.0) Ur Specific [place] 1.025 (1.003-1.030) Urine Protein 30 H (NEGATIVE) mg/dL Urine Glucose (UA) Negative (NEGATIVE) mg/dL Urine Ketones Trace H (NEGATIVE) mg/dL Urine Occult Blood Moderate H (NEGATIVE) Urine Nitrite Negative (NEGATIVE) Urine Bilirubin Small H (NEGATIVE) Urine Urobilinogen 1.0 (0.2-1.0) E.U./dL Ur Leukocyte Esterase Small H (NEGATIVE) Urine RBC 10-20 H /HPF Urine WBC 40-50 H /HPF Urine Bacteria Moderate H /HPF 02/23/20 02/24/20 02/24/20 Range/Units 19:34 06:22 07:10 WBC (4.0-11.0) K/uL RBC (4.50-6.50) M/uL Hgb (13.0-18.0) g/dL Hct (40.0-54.0) % MCV (76-96) fL MCH (27.0-32.0) pg MCHC (31.0-35.0) g/dL RDW (11.0-16.0) % Plt Count (150-400) K/uL MPV (6.0-10.0) fL Neut % (Auto) (45.0-70.0) % Lymph % (Auto) (20.0-40.0) % [place] % (Auto) (3.0-10.0) % Eos % (Auto) (1.0-5.0) % Baso % (Auto) (0.0-0.5) % Neut # (Auto) (2.00-7.50) K/uL Lymph # (Auto) (1.50-4.00) K/uL [place] # (Auto) (0.20-0.80) K/uL Eos # (Auto) (0.04-0.40) K/uL Baso # (Auto) (0.02-0.10) K/uL Sodium (136-145) mmol/L Potassium (3.5-5.1) mmol/L Chloride (98-107) mmol/L Carbon Dioxide (21.0-32.0) mmol/L Anion Gap (5.0-15.0) mmol/L BUN (8-26) mg/dL Creatinine (0.70-1.30) mg/dL Est Cr Clr Drug Dosing mL/min Estimated GFR (MDRD) (>60) MLS/MIN BUN/Creatinine Ratio (6-25) Glucose (74-100) mg/dL POC Glucose 373 H 269 H (74-110) mg/dL Calcium (8.5-10.1) mg/dL Magnesium (1.8-2.4) mg/dL Total Bilirubin (0.0-1.0) mg/dL AST (15-37) U/L ALT (12-78) U/L Alkaline Phosphatase (46-116) U/L C-Reactive Protein (0.0-3.0) mg/L B-Natriuretic Peptide (0-125) pg/mL Total Protein (6.4-8.2) g/dL Albumin (3.4-5.0) g/dL Globulin (2.2-4.2) g/dL Albumin/Globulin Ratio (0.8-2.0) Prostate Specific Ag 0.56 (0.00-4.00) ng/mL Urine Color Urine Appearance (CLEAR) Urine pH (5.0-8.0) Ur Specific [place] (1.003-1.030) Urine Protein (NEGATIVE) mg/dL Urine Glucose (UA) (NEGATIVE) mg/dL Urine Ketones (NEGATIVE) mg/dL Urine Occult Blood (NEGATIVE) Urine Nitrite (NEGATIVE) Urine Bilirubin (NEGATIVE) Urine Urobilinogen (0.2-1.0) E.U./dL Ur Leukocyte Esterase (NEGATIVE) Urine RBC /HPF Urine WBC /HPF Urine Bacteria /HPF 02/24/20 02/24/20 Range/Units 07:10 07:10 WBC 12.0 H (4.0-11.0) K/uL RBC 3.84 L (4.50-6.50) M/uL Hgb 10.6 L (13.0-18.0) g/dL Hct 33.7 L (40.0-54.0) % MCV 88 (76-96) fL MCH 27.6 (27.0-32.0) pg MCHC 31.5 (31.0-35.0) g/dL RDW 15.3 (11.0-16.0) % Plt Count 371 (150-400) K/uL MPV 9.1 (6.0-10.0) fL Neut % (Auto) 82.1 H (45.0-70.0) % Lymph % (Auto) 10.0 L (20.0-40.0) % [place] % (Auto) 7.7 (3.0-10.0) % Eos % (Auto) 0.1 L (1.0-5.0) % Baso % (Auto) 0.1 (0.0-0.5) % Neut # (Auto) 9.82 H (2.00-7.50) K/uL Lymph # (Auto) 1.20 L (1.50-4.00) K/uL [place] # (Auto) 0.92 H (0.20-0.80) K/uL Eos # (Auto) 0.01 L (0.04-0.40) K/uL Baso # (Auto) 0.01 L (0.02-0.10) K/uL Sodium 138 (136-145) mmol/L Potassium 3.9 (3.5-5.1) mmol/L Chloride 101 (98-107) mmol/L Carbon Dioxide 28.5 (21.0-32.0) mmol/L Anion Gap 12.4 (5.0-15.0) mmol/L BUN 28 H D (8-26) mg/dL Creatinine 1.46 H (0.70-1.30) mg/dL Est Cr Clr Drug Dosing 50.94 mL/min Estimated GFR (MDRD) 48 L (>60) MLS/MIN BUN/Creatinine Ratio 19.2 (6-25) Glucose 273 H D (74-100) mg/dL POC Glucose (74-110) mg/dL Calcium 8.7 (8.5-10.1) mg/dL Magnesium 1.9 (1.8-2.4) mg/dL Total Bilirubin 0.5 D (0.0-1.0) mg/dL AST 15 (15-37) U/L ALT 12 (12-78) U/L Alkaline Phosphatase 52 (46-116) U/L C-Reactive Protein 106.6 H (0.0-3.0) mg/L B-Natriuretic Peptide 7521 H (0-125) pg/mL Total Protein 6.6 (6.4-8.2) g/dL Albumin 1.9 L (3.4-5.0) g/dL Globulin 4.7 H (2.2-4.2) g/dL Albumin/Globulin Ratio 0.4 L (0.8-2.0) Prostate Specific Ag (0.00-4.00) ng/mL Urine Color Urine Appearance (CLEAR) Urine pH (5.0-8.0) Ur Specific [place] (1.003-1.030) Urine Protein (NEGATIVE) mg/dL Urine Glucose (UA) (NEGATIVE) mg/dL Urine Ketones (NEGATIVE) mg/dL Urine Occult Blood (NEGATIVE) Urine Nitrite (NEGATIVE) Urine Bilirubin (NEGATIVE) Urine Urobilinogen (0.2-1.0) E.U./dL Ur Leukocyte Esterase (NEGATIVE) Urine RBC /HPF Urine WBC /HPF Urine Bacteria /HPF Abhi Results Last 24 Hours: Microbiology 02/22/20 15:00 MRSA Surveillance Culture - Final Nares, Unspecified NO MRSA ISOLATED 02/22/20 12:28 Urine Culture - Preliminary Urine, Voided Gram Positive Cocci Gram Negative Rods Med Orders - Current: Current Medications Acetaminophen (Tylenol) 650 mg PO Q4H PRN PRN Reason: analgesia/fever Last Admin: 02/22/20 20:09 Dose: 650 mg Allopurinol (Zyloprim) 100 mg PO DAILY [facility] Last Admin: 02/24/20 08:03 Dose: 100 mg Carbidopa/Levodopa (Sinemet 25-100 Mg) 1 tab PO BEDTIME [facility] Last Admin: 02/23/20 21:27 Dose: 1 tab Carvedilol (Coreg) 12.5 mg PO BID [facility] Last Admin: 02/24/20 08:01 Dose: 12.5 mg Furosemide (Lasix) 10 mg IVPUSH DAILY [facility] Last Admin: 02/24/20 08:01 Dose: 10 mg Gabapentin (Neurontin) 300 mg PO QID [facility] Last Admin: 02/24/20 08:04 Dose: 300 mg Sodium Chloride (Normal Saline) 1,000 mls @ 100 mls/hr IV ASDIRECTED [facility] Lisinopril (Prinivil) 5 mg PO BID [facility] Last Admin: 02/24/20 08:03 Dose: 5 mg Magnesium Hydroxide (Milk Of Magnesia) 30 ml PO BID PRN PRN Reason: Constipation Oxycodone/Acetaminophen (Percocet 325-5 Mg) 1 tab PO Q6H PRN PRN Reason: Muscle Spasm Prednisone (Prednisone) 40 mg PO DAILY [facility] Stop: 02/26/20 13:16 Last Admin: 02/24/20 08:04 Dose: 40 mg Rivaroxaban (Xarelto) 20 mg PO WITHDINNER [facility] Last Admin: 02/23/20 17:36 Dose: Not Given Sodium Chloride (Saline Flush) 10 ml FLUSH ASDIRECTED PRN PRN Reason: Other Sodium Chloride (Saline Flush) 10 ml FLUSH ASDIRECTED PRN PRN Reason: Keep Vein Open [facility] Admin: 02/24/20 08:51 Dose: 0.4 mg Tizanidine HCl (Tizanidine) 2 mg PO QID [facility] Last Admin: 02/24/20 08:11 Dose: Not Given Venlafaxine HCl (Effexor Xr) 75 mg PO BEDTIME [facility] Last Admin: 02/23/20 20:56 Dose: 75 mg Discontinued Medications Allopurinol (Zyloprim) Confirm Administered Dose 100 mg .ROUTE .STK-MED ONE Stop: 02/23/20 17:29 Last Admin: 02/23/20 17:36 Dose: Not Given Bisacodyl (Dulcolax) 10 mg RECTAL ONETIME ONE Stop: 02/22/20 11:15 Last Admin: 02/22/20 11:27 Dose: 10 mg Bisacodyl (Dulcolax) Confirm Administered Dose 10 mg .ROUTE .STK-MED ONE Stop: 02/22/20 11:17 Last Admin: 02/22/20 11:31 Dose: Not Given Calamine/Phenol (Calmoseptine) Confirm Administered Dose 113 gm TOP .STK-MED ONE Stop: 02/22/20 19:42 Last Admin: 02/22/20 20:11 Dose: 1 applic Furosemide (Lasix) 10 mg IVPUSH BID [facility] Last Admin: 02/23/20 07:59 Dose: 10 mg Furosemide (Lasix) 10 mg IVPUSH NOW STA Stop: 02/22/20 18:59 Last Admin: 02/22/20 20:08 Dose: 10 mg Multivitamins/Minerals 10 ml/Thiamine HCl 100 mg/ Folic Acid 1 mg/ Magnesium Sulfate 3 gm/ Sodium Chloride 1,017.2 mls @ 125 mls/hr IV ASDIRECTED [facility] Last Admin: 02/22/20 15:15 Dose: 125 mls/hr Insulin Aspart (Novolog) 0 unit SUBCUT QID [facility]; Protocol Insulin Aspart (Novolog) 0 unit SUBCUT 0800,1200,1700,2000 [facility]; Protocol Last Admin: 02/23/20 11:55 Dose: 2 unit Lisinopril (Prinivil) 2.5 mg PO BID [facility] Last Admin: 02/23/20 08:04 Dose: 2.5 mg Lisinopril (Prinivil) 2.5 mg PO NOW STA Stop: 02/22/20 19:00 Last Admin: 02/22/20 20:10 Dose: 2.5 mg Magnesium Hydroxide (Milk Of Magnesia) 30 ml PO ONETIME ONE Stop: 02/22/20 11:13 Last Admin: 02/22/20 11:21 Dose: 30 ml Magnesium Hydroxide (Milk Of Magnesia) Confirm Administered Dose 30 ml .ROUTE .STK-MED ONE Stop: 02/22/20 11:17 Last Admin: 02/22/20 11:31 Dose: Not Given Nitrofurantoin Macrocrystals (Macrodantin) 50 mg PO QID [facility] Last Admin: 02/23/20 11:55 Dose: 50 mg Pantoprazole Sodium (Protonix Iv) 40 mg IVPUSH Q12H [facility] Last Admin: 02/22/20 15:15 Dose: 40 mg Pantoprazole Sodium (Protonix Iv) 40 mg IVPUSH BID [facility] Last Admin: 02/23/20 07:54 Dose: 40 mg Polyethylene Glycol (Miralax) 17 gm PO ONETIME ONE Stop: 02/22/20 11:14 Last Admin: 02/22/20 11:25 Dose: 17 gm Polyethylene Glycol (Miralax) Confirm Administered Dose 17 gm .ROUTE .STK-MED ONE Stop: 02/22/20 11:18 Last Admin: 02/22/20 11:31 Dose: Not Given Polyethylene Glycol (Miralax) 17 gm PO BID [facility] Last Admin: 02/23/20 08:06 Dose: 17 gm Rivaroxaban (Xarelto) Confirm Administered Dose 20 mg .ROUTE .STK-MED ONE Stop: 02/22/20 18:18 Last Admin: 02/23/20 07:03 Dose: Not Given Rivaroxaban (Xarelto) Confirm Administered Dose 20 mg .ROUTE .STK-MED ONE Stop: 02/23/20 17:21 Last Admin: 02/23/20 17:25 Dose: 20 mg Tramadol HCl (Ultram) 100 mg PO Q6H PRN PRN Reason: Pain Last Admin: 02/23/20 14:18 Dose: 100 mg Venlafaxine HCl (Effexor Xr) 37.5 mg PO BEDTIME [facility] Last Admin: 02/22/20 20:11 Dose: 37.5 mg Sepsis Event Note - Evaluation Sepsis Screening Result: No Definite Risk - Focused Exam Vital Signs: Vital Signs Temp Temp Pulse Pulse Resp BP BP 02/24/20 08:03 126/76 02/24/20 08:01 72 126/76 02/24/20 07:38 98.8 F 75 18 129/71 02/24/20 07:35 98.8 F 75 18 129/71 02/24/20 04:00 98.4 F 84 18 132/76 02/24/20 00:40 99.3 F 82 18 125/67 Pulse Ox 02/24/20 08:03 02/24/20 08:01 02/24/20 07:38 96 02/24/20 07:35 96 02/24/20 04:00 99 02/24/20 00:40 95 Date Exam was Performed: 02/24/20 Time Exam was Performed: 11:05 - Problem List Review Problem List Initiated/Reviewed/Updated: Yes - My Orders Last 24 Hours: My Active Orders 02/23/20 14:30 allopurinoL [Zyloprim] 100 mg PO DAILY 02/23/20 15:19 Sodium Chloride 0.9% [Saline Flush] 10 ml FLUSH ASDIRECTED PRN Saline Lock Insert [OM.PC] Stat 02/23/20 15:25 Acetaminophen/oxyCODONE [Percocet 325-5 MG] 1 tab PO Q6H PRN 02/23/20 16:00 tiZANidine 2 mg PO QID 02/23/20 16:33 CULTURE URINE [RM] Urgent 02/23/20 20:00 Venlafaxine [Effexor XR] 75 mg PO BEDTIME lisinopriL [Prinivil] 5 mg PO BID 02/23/20 21:00 Carbidopa/Levodopa [Sinemet 25-100 mg] 1 tab PO BEDTIME 02/24/20 08:00 Furosemide [Lasix] 10 mg IVPUSH DAILY 02/24/20 11:00 Sodium Chloride 0.9% [Normal Saline] 1,000 ml IV ASDIRECTED - Assessment Assessment:: Continue to r/o UTI GNR in urine culture- difficult to exclude prostatic involvement ??benefit from background nitrofurantoin (vs diminished concentration in urinary tubules) but prostate is highly vascularized so should buy time for observation; and consideration of single-dose fosfomycin pending urine cultures consider recheck labs and/or potential infectious markers (procalcitonin, CRP, lactate, etc) - Plan Plan:: Bryce has had a very complex case. 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 He just got home a couple weeks back. It appears that he is failing outpatient management, by any means. He has called the ambulance at least twice. Today he is presenting with a complication of the oxycodone that we provided him over the last couple of days, I am sure. It is not clear exactly what is going on with his medications at home, although it sounds like his and others involved have some definite increased help coming to their home at this point. Either way, given pills with lack of response to a bowel routine, and recheck of his labs trending in a worsening direction, particularly in regard to his tendency to get septic in the past, I explained to Bryce that it certainly would be reasonable to admit him for more intensive management of his multiple medical concerns. Certainly he would be an excellent candidate for physical therapy, and Occupational Therapy. I would certainly think that if anyone deserved a public health nurse, it would be him, but I am not sure exactly how are limited resources are activated in that capacity. If nothing more, having pill packs or some sort of blister packaging on his meds may be helpful. It seems of his chronic concerns his diabetes is less of an issue, and has chronic kidney disease which appears improved from his most previous baseline in terms of his creatinine today, and CHF, merit a trial on another LIANA inhibitor and/or ARB. All this is certainly complicated by his lack of significant blood pressure, although it has consistently been elevated, and this could quite reasonably be due to pain.
[2020-02-24] MEDS: Sodium Chloride 0.9% 1,000 ML IV SCH ×2 (12:56→22:30)
[2020-02-24] MEDS ORDERED: Rivaroxaban 10 MG Tab ONE (16:59)
[2020-02-24] MEDS: Venlafaxine 75 MG Cap.ER PO SCH (20:33)
[2020-02-24] MEDS: Carbidopa/Levodopa 25-100 MG Tab PO SCH (20:33)
[2020-02-25] MEDS: Furosemide 20 MG/2 ML VIAL IVPUSH SCH (07:48)
[2020-02-25] MEDS: Allopurinol 100 MG Tab PO SCH (08:00)
[2020-02-25] MEDS: predniSONE 20 MG Tab PO SCH (08:00)
[2020-02-25] MEDS: Carvedilol 12.5 MG Tab PO SCH ×2 (08:00→19:54)
[2020-02-25] MEDS: Gabapentin 300 MG Cap PO SCH ×4 (08:00→19:53)
[2020-02-25] MEDS: Tamsulosin 0.4 MG Cap.ER PO SCH ×2 (08:00→17:16)
[2020-02-25] MEDS: Lisinopril 5 MG Tab PO SCH ×2 (08:01→19:53)
[2020-02-25] MEDS: tiZANidine 2 MG Cap PO SCH ×4 (08:01→19:54)
[2020-02-25] MEDS: Acetaminophen/oxyCODONE 325-5 MG Tab PO PRN (08:37)
[2020-02-25] MEDS: cefTRIAXone 1 GM in Sodium Chloride 0.9% 50 ML IV SCH (10:51)
--- NOTE | 2020-02-25 11:05 | PN ---
DATE OF VISIT: 02/25/2020 Mr. Mitchell is stable. He was under the care of Dr. Washington Mahajan from his date of admission on 02/21 through yesterday 02/23. He was admitted for weakness and UTI as well as constipation and cramping. He had been on OxyContin at home for chronic low back pain. He is on oxycodone here while an inpatient. His constipation was successfully treated with MiraLAX, butter, hot water, prune juice in the emergency room. His chart was reviewed and his hospital course was discussed with the nurses. His urine appears to have Enterococcus and Pseudomonas and I will be reviewing this to determine what the appropriate oral antibiotic to place him on at this time. He is afebrile. His vitals are stable. He feels quite well at this time with minimal discomfort. The issue at hand at this point in time is as outlined in his progress notes mainly to arrange a satisfactory home health care nurse for him and until we can accomplish that, the consensus is that he probably should not be going home. I suspect that this ought to be resolved within the next couple of days. I will review his culture and sensitivity results as he has a mixed Pseudomonas and Enterococcus growing out of his urine. DARREN/TAZ /[id number]
[2020-02-25] MEDS ORDERED: Rivaroxaban 10 MG Tab ONE (16:55)
[2020-02-25] MEDS: Venlafaxine 75 MG Cap.ER PO SCH (19:53)
[2020-02-25] MEDS: Carbidopa/Levodopa 25-100 MG Tab PO SCH (19:53)
[2020-02-25] MEDS: Sodium Chloride 0.9% 10 ML Syringe FLUSH PRN (19:58)
[2020-02-26] MEDS: Allopurinol 100 MG Tab PO SCH (08:21)
[2020-02-26] MEDS: Lisinopril 5 MG Tab PO SCH ×2 (08:21→19:40)
[2020-02-26] MEDS: Tamsulosin 0.4 MG Cap.ER PO SCH ×2 (08:21→17:04)
[2020-02-26] MEDS: predniSONE 20 MG Tab PO SCH (08:21)
[2020-02-26] MEDS: tiZANidine 2 MG Cap PO SCH (08:22)
[2020-02-26] MEDS: Furosemide 20 MG/2 ML VIAL IVPUSH SCH (08:22)
[2020-02-26] MEDS: Gabapentin 300 MG Cap PO SCH ×4 (08:22→19:36)
[2020-02-26] MEDS: Carvedilol 12.5 MG Tab PO SCH ×2 (08:22→19:40)
[2020-02-26] MEDS ORDERED: Insulin Detemir 100 Units/ML 3 ML Pen SUBCUT SCH (09:00)
[2020-02-26] MEDS ORDERED: Insulin Glargine,Human Rec. Analog 100 Units/ML 3 ML Pen SUBCUT SCH (09:00)
--- NOTE | 2020-02-26 10:58 | PN ---
DATE OF VISIT: 02/26/2020 SUBJECTIVE: Mr. Mitchell has no complaints this morning. OBJECTIVE: He is afebrile. Blood pressure is stable at 153/72, O2 sats at 95%. His urine output has been difficult to monitor because of his long-standing incontinence due to cauda equina. LABORATORY DATA: His WBC is down to 11.5. His hemoglobin is unchanged at 10.6. His electrolytes are normal. His creatinine has gone from 1.4 to 1.1 over the last couple of days, which is an improvement. His BUN is 24. His estimated GFR is now greater than 60. His glucose was 191 this morning. IMPRESSION: Stable. The main task at hand at this point is to arrange for home health care nursing. He did ask me some questions about his urinary incontinence related to his cauda equina and we had a brief discussion about that. We will resume his normal insulin regimen and discontinue his prednisone. After today, we no longer will be needing to give him Lasix and we will see how he does with that. DARREN/TAZ /[id number]
[2020-02-26] MEDS: Acetaminophen/oxyCODONE 325-5 MG Tab PO PRN ×2 (11:10→22:20)
[2020-02-26] MEDS: cefTRIAXone 1 GM in Sodium Chloride 0.9% 50 ML IV SCH (11:12)
[2020-02-26] MEDS: Insulin Aspart 100 Units/ML 3 ML Pen SUBCUT SCH ×2 (11:38→17:02)
[2020-02-26] MEDS: Rivaroxaban 10 MG Tab PO SCH (17:04)
[2020-02-26] MEDS: Venlafaxine 75 MG Cap.ER PO SCH (19:36)
[2020-02-26] MEDS: Carbidopa/Levodopa 25-100 MG Tab PO SCH (19:36)
[2020-02-26] MEDS: Sodium Chloride 0.9% 10 ML Syringe FLUSH PRN (19:44)
[2020-02-26] MEDS: Menthol/Zinc Oxide Ointment 113 GM Tube TOP PRN (23:30)
[2020-02-27] MEDS: Gabapentin 300 MG Cap PO SCH ×4 (07:30→20:37)
[2020-02-27] MEDS: Allopurinol 100 MG Tab PO SCH (07:30)
[2020-02-27] MEDS: Carvedilol 12.5 MG Tab PO SCH ×2 (07:31→20:35)
[2020-02-27] MEDS: Lisinopril 5 MG Tab PO SCH ×2 (07:31→20:37)
[2020-02-27] MEDS: Insulin Glargine,Human Rec. Analog 100 Units/ML 3 ML Pen SUBCUT SCH (07:33)
[2020-02-27] MEDS: Insulin Aspart 100 Units/ML 3 ML Pen SUBCUT SCH ×3 (07:40→17:00)
[2020-02-27] MEDS: Tamsulosin 0.4 MG Cap.ER PO SCH ×2 (08:01→18:03)
[2020-02-27] MEDS: Menthol/Zinc Oxide Ointment 113 GM Tube TOP PRN ×2 (09:00→15:48)
[2020-02-27] MEDS: cefTRIAXone 1 GM in Sodium Chloride 0.9% 50 ML IV SCH (11:15)
[2020-02-27] MEDS: Sodium Chloride 0.9% 10 ML Syringe FLUSH PRN (11:19)
[2020-02-27] MEDS: Acetaminophen 325 MG Tab PO PRN (12:00)
[2020-02-27] MEDS: Acetaminophen/oxyCODONE 325-5 MG Tab PO PRN ×2 (13:36→20:38)
[2020-02-27] MEDS: Rivaroxaban 10 MG Tab PO SCH (18:02)
[2020-02-27] MEDS ORDERED: Rivaroxaban 10 MG Tab ONE (18:04)
[2020-02-27] MEDS: Venlafaxine 75 MG Cap.ER PO SCH (20:36)
[2020-02-27] MEDS: Carbidopa/Levodopa 25-100 MG Tab PO SCH (20:38)
[2020-02-28] MEDS: Insulin Aspart 100 Units/ML 3 ML Pen SUBCUT SCH ×2 (07:06→12:16)
[2020-02-28] MEDS ORDERED: Oxybutynin 5 MG Tab.ER PO SCH ×2 (08:00)
[2020-02-28] MEDS: Carvedilol 12.5 MG Tab PO SCH (08:25)
[2020-02-28] MEDS: Lisinopril 5 MG Tab PO SCH (08:27)
[2020-02-28] MEDS: Allopurinol 100 MG Tab PO SCH (08:28)
[2020-02-28] MEDS: Gabapentin 300 MG Cap PO SCH ×2 (08:28→12:50)
[2020-02-28] MEDS: Insulin Glargine,Human Rec. Analog 100 Units/ML 3 ML Pen SUBCUT SCH (08:40)
[2020-02-28] MEDS: Tamsulosin 0.4 MG Cap.ER PO SCH (08:43)
[2020-02-28] MEDS: Acetaminophen/oxyCODONE 325-5 MG Tab PO PRN (10:34)
[2020-02-28 13:36] VITALS: BP 136/62; PULSE 76
--- NOTE | 2020-02-28 14:58 | PCM.DCSUM1 ---
Discharge Summary - Hospital Course Free Text/Narrative:: discharge to swing bed for continued skilled therapy to ensure patient safety at home, vs potential for NH placement if fails a trial at home again while optimized to as much help as can be delivered to their home. I did discuss this with Bryce, and he is coming around to the reality of his situation, not to take away hope. He was followed to exclude UTI. Interestingly, he came back positive for pseudomonas and a gram positive (enterococcus vs staph epi contaminant). He remained able to void without the alva. His pain remained an issue, and he felt that the pain medications were not long enough acting, and /o, offer significant relief. - Discharge Data Discharge Date: 02/28/20 Discharge Disposition: DC/Tfer W/I Hosp To Swing Condition: Good - Referral to Home Health Primary Care Physician: PCP None - Patient Summary/Data Consults: Consultations 02/22/20 13:37 Consult to Occupational Therapy [OT Evaluation and Treatment] [CONS] Routine Please Evaluate and Treat. OT Reason for Consult: Discharge Planning This query below is only for informational purposes and is not editable. Admission Diagnosis/Problem: UTI (urinary tract infection) due to urinary indwelling catheter Consult to Physical Therapy [PT Evaluation and Treatment] [CONS] Routine Please Evaluate and Treat. PT Reason for Consult: Strengthening This query below is only for informational purposes and is not editable. Admission Diagnosis/Problem: UTI (urinary tract infection) due to urinary indwelling catheter - Patient Instructions Diet: Low Sodium, Diabetic Diet Activity: As Tolerated Driving: Do Not Drive Notify Provider of: Fever, Increased Pain, Swelling and Redness, Drainage, Nausea and/or Vomiting - Discharge Plan Home Medications: Home Meds Acetaminophen 650 mg PO TID 02/21/20 [History] Baclofen 5 mg PO BID 02/21/20 [History] Carbidopa/Levodopa [Carbidopa-Levo 25-100 MG ODT] 25 mg PO BEDTIME 02/21/20 [ History] Cholecalciferol (Vitamin D3) [Vitamin D3] 1,000 mg PO BID 02/21/20 [History] Citalopram Hydrobromide [Celexa] 20 mg PO DAILY 02/21/20 [History] Docusate Sodium [Colace] 100 mg PO DAILY 02/21/20 [History] Gabapentin [Neurontin] 600 mg PO BID 02/21/20 [History] Insulin Aspart Prot/Insuln Asp [Insulin Aspart Prot-Insuln Asp] 2 units SQ TID 02/21/20 [History] Insulin Glarg,Human.Rec.Analog [Lantus Solostar] 25 units SQ DAILY 02/21/20 [ History] Oxybutynin Chloride [Ditropan Xl] 10 mg PO DAILY 02/21/20 [History] Pantoprazole [ProTONIX] 40 mg PO DAILY 02/21/20 [History] Potassium Chloride 20 meq PO BID 02/21/20 [History] Rivaroxaban [Xarelto] 20 mg PO DAILY 02/21/20 [History] Simvastatin 80 mg PO BEDTIME 02/21/20 [History] allopurinoL [Zyloprim] 300 mg PO DAILY 02/21/20 [History] amLODIPine [Norvasc] 10 mg PO DAILY 02/21/20 [History] carvediloL [Carvedilol] 12.5 mg PO DAILY 02/21/20 [History] hydrOXYzine HCL [Hydroxyzine HCl] 10 mg PO TID 02/21/20 [History] predniSONE 10 mg PO DAILY 02/21/20 [History] traMADol [Ultram] 50 mg PO TID 02/21/20 [History] Oxygen Therapy Mode: CPAP Maintain SpO2% greater than: 92 Patient Handouts: Fall Prevention in the Home, Adult, [id number], Heart- Healthy Eating Plan, [id number]-[id number], Constipation, Adult, [id number], Type 2 Diabetes Mellitus, Self Care, Adult, [id number], Diabetes Mellitus and Nutrition, Adult Forms: ED Department Discharge Referrals: PCP,None [Primary Care Provider] - - Discharge Summary/Plan Comment DC Time >30 min.: No - Patient Data Vitals - Most Recent: Last Vital Signs Temp 97.5 F 02/28/20 12:00 Pulse 76 02/28/20 12:00 Resp 18 02/28/20 12:00 BP 136/62 02/28/20 12:00 Pulse Ox 96 02/28/20 12:00 Weight - Most Recent: 241 lb 5.123 oz I&O - Last 24 hours: Intake & Output 02/27/20 02/28/20 02/28/20 22:59 06:59 14:59 Intake Total 3250 500 Output Total 1000 Balance 2250 500 Lab Results - Last 24 hrs: Laboratory Results - last 24 hr 02/27/20 02/27/20 02/27/20 Range/Units 11:35 16:31 19:40 WBC (4.0-11.0) K/uL RBC (4.50-6.50) M/uL Hgb (13.0-18.0) g/dL Hct (40.0-54.0) % MCV (76-96) fL MCH (27.0-32.0) pg MCHC (31.0-35.0) g/dL RDW (11.0-16.0) % Plt Count (150-400) K/uL MPV (6.0-10.0) fL POC Glucose 147 H 131 H 157 H (74-110) mg/dL Urine Color Urine Appearance (CLEAR) Urine pH (5.0-8.0) Ur Specific [place] (1.003-1.030) Urine Protein (NEGATIVE) mg/dL Urine Glucose (UA) (NEGATIVE) mg/dL Urine Ketones (NEGATIVE) mg/dL Urine Occult Blood (NEGATIVE) Urine Nitrite (NEGATIVE) Urine Bilirubin (NEGATIVE) Urine Urobilinogen (0.2-1.0) E.U./dL Ur Leukocyte Esterase (NEGATIVE) Urine RBC /HPF Urine WBC Urine Bacteria /HPF Urinalysis Comment 02/28/20 02/28/20 02/28/20 Range/Units 07:05 07:15 09:00 WBC 11.5 H (4.0-11.0) K/uL RBC 4.18 L (4.50-6.50) M/uL Hgb 11.5 L (13.0-18.0) g/dL Hct 36.6 L (40.0-54.0) % MCV 88 (76-96) fL MCH 27.5 (27.0-32.0) pg MCHC 31.4 (31.0-35.0) g/dL RDW 14.9 (11.0-16.0) % Plt Count 372 (150-400) K/uL MPV 9.1 (6.0-10.0) fL POC Glucose 128 H (74-110) mg/dL Urine Color Yellow Urine Appearance Clear (CLEAR) Urine pH 8.0 (5.0-8.0) Ur Specific [place] 1.025 (1.003-1.030) Urine Protein Trace H (NEGATIVE) mg/dL Urine Glucose (UA) Negative (NEGATIVE) mg/dL Urine Ketones Negative (NEGATIVE) mg/dL Urine Occult Blood Small H (NEGATIVE) Urine Nitrite Negative (NEGATIVE) Urine Bilirubin Negative (NEGATIVE) Urine Urobilinogen 1.0 (0.2-1.0) E.U./dL Ur Leukocyte Esterase Negative (NEGATIVE) Urine RBC 5-10 H /HPF Urine WBC Not Reportable Urine Bacteria Rare /HPF Urinalysis Comment ANA Results - Last 24 hrs: Microbiology 02/23/20 16:33 Urine Culture - Final Urine, Voided Staphylococcus Epidermidis Pseudomonas Aeruginosa Med Orders - Current: Current Medications Acetaminophen (Tylenol) 650 mg PO Q4H PRN PRN Reason: analgesia/fever Last Admin: 02/27/20 12:00 Dose: 650 mg Allopurinol (Zyloprim) 100 mg PO DAILY [facility] Last Admin: 02/28/20 08:28 Dose: 100 mg Calamine/Phenol (Calmoseptine) 1 gm TOP QID PRN PRN Reason: Other Last Admin: 02/27/20 15:48 Dose: 1 applic Carbidopa/Levodopa (Sinemet 25-100 Mg) 1 tab PO BEDTIME [facility] Last Admin: 02/27/20 20:38 Dose: 1 tab Carvedilol (Coreg) 12.5 mg PO BID [facility] Last Admin: 02/28/20 08:25 Dose: 12.5 mg Gabapentin (Neurontin) 300 mg PO QID [facility] Last Admin: 02/28/20 12:50 Dose: 300 mg Insulin Aspart (Novolog) 0 unit SUBCUT TIDAC [facility]; Protocol Last Admin: 02/28/20 12:16 Dose: Not Given Insulin Glargine (Lantus Solostar) 28 units SUBCUT DAILY [facility] Last Admin: 02/28/20 08:40 Dose: 28 units Lisinopril (Prinivil) 5 mg PO BID [facility] Last Admin: 02/28/20 08:27 Dose: 5 mg Magnesium Hydroxide (Milk Of Magnesia) 30 ml PO BID PRN PRN Reason: Constipation Last Admin: 02/25/20 19:53 Dose: 30 ml Oxybutynin Chloride (Oxybutynin Er) 20 mg PO DAILY [facility] Last Admin: 02/28/20 08:27 Dose: 20 mg Oxycodone/Acetaminophen (Percocet 325-5 Mg) 1 tab PO Q6H PRN PRN Reason: Muscle Spasm Last Admin: 02/28/20 10:34 Dose: 1 tab Rivaroxaban (Xarelto) 20 mg PO WITHDINNER [facility] Last Admin: 02/27/20 18:02 Dose: 20 mg Sodium Chloride (Saline Flush) 10 ml FLUSH ASDIRECTED PRN PRN Reason: Other Last Admin: 02/27/20 11:19 Dose: 10 ml Sodium Chloride (Saline Flush) 10 ml FLUSH ASDIRECTED PRN PRN Reason: Keep Vein Open [facility] Admin: 02/28/20 08:43 Dose: 0.4 mg Venlafaxine HCl (Effexor Xr) 75 mg PO BEDTIME [facility] Last Admin: 02/27/20 20:36 Dose: 75 mg Discontinued Medications Allopurinol (Zyloprim) Confirm Administered Dose 100 mg .ROUTE .STK-MED ONE Stop: 02/23/20 17:29 Last Admin: 02/23/20 17:36 Dose: Not Given Bisacodyl (Dulcolax) 10 mg RECTAL ONETIME ONE Stop: 02/22/20 11:15 Last Admin: 02/22/20 11:27 Dose: 10 mg Bisacodyl (Dulcolax) Confirm Administered Dose 10 mg .ROUTE .STK-MED ONE Stop: 02/22/20 11:17 Last Admin: 02/22/20 11:31 Dose: Not Given Calamine/Phenol (Calmoseptine) Confirm Administered Dose 113 gm TOP .STK-MED ONE Stop: 02/22/20 19:42 Last Admin: 02/22/20 20:11 Dose: 1 applic Furosemide (Lasix) 10 mg IVPUSH BID [facility] Last Admin: 02/23/20 07:59 Dose: 10 mg Furosemide (Lasix) 10 mg IVPUSH NOW STA Stop: 02/22/20 18:59 Last Admin: 02/22/20 20:08 Dose: 10 mg Furosemide (Lasix) 10 mg IVPUSH DAILY [facility] Last Admin: 02/26/20 08:22 Dose: 10 mg Multivitamins/Minerals 10 ml/Thiamine HCl 100 mg/ Folic Acid 1 mg/ Magnesium Sulfate 3 gm/ Sodium Chloride 1,017.2 mls @ 125 mls/hr IV ASDIRECTED [facility] Last Admin: 02/22/20 15:15 Dose: 125 mls/hr Sodium Chloride (Normal Saline) 1,000 mls @ 100 mls/hr IV ASDIRECTED [facility] Last Admin: 02/24/20 22:30 Dose: 100 mls/hr Ceftriaxone Sodium 1 gm/ (Sodium Chloride) 50 mls @ 100 mls/hr IV Q24H POOL Stop: 02/27/20 11:29 Last Admin: 02/27/20 11:15 Dose: 100 mls/hr Insulin Aspart (Novolog) 0 unit SUBCUT QID [facility]; Protocol Insulin Aspart (Novolog) 0 unit SUBCUT 0800,1200,1700,2000 [facility]; Protocol Last Admin: 02/23/20 11:55 Dose: 2 unit Insulin Detemir (Levemir) 25 unit SUBCUT DAILY [facility] Insulin Glargine (Lantus Solostar) 25 units SUBCUT DAILY [facility] Last Admin: 02/26/20 09:21 Dose: 25 units Lisinopril (Prinivil) 2.5 mg PO BID [facility] Last Admin: 02/23/20 08:04 Dose: 2.5 mg Lisinopril (Prinivil) 2.5 mg PO NOW STA Stop: 02/22/20 19:00 Last Admin: 02/22/20 20:10 Dose: 2.5 mg Magnesium Hydroxide (Milk Of Magnesia) 30 ml PO ONETIME ONE Stop: 02/22/20 11:13 Last Admin: 02/22/20 11:21 Dose: 30 ml Magnesium Hydroxide (Milk Of Magnesia) Confirm Administered Dose 30 ml .ROUTE .STK-MED ONE Stop: 02/22/20 11:17 Last Admin: 02/22/20 11:31 Dose: Not Given Nitrofurantoin Macrocrystals (Macrodantin) 50 mg PO QID [facility] Last Admin: 02/23/20 11:55 Dose: 50 mg Oxybutynin Chloride (Oxybutynin Er) 10 mg PO DAILY [facility] Pantoprazole Sodium (Protonix Iv) 40 mg IVPUSH Q12H [facility] Last Admin: 02/22/20 15:15 Dose: 40 mg Pantoprazole Sodium (Protonix Iv) 40 mg IVPUSH BID [facility] Last Admin: 02/23/20 07:54 Dose: 40 mg Polyethylene Glycol (Miralax) 17 gm PO ONETIME ONE Stop: 02/22/20 11:14 Last Admin: 02/22/20 11:25 Dose: 17 gm Polyethylene Glycol (Miralax) Confirm Administered Dose 17 gm .ROUTE .STK-MED ONE Stop: 02/22/20 11:18 Last Admin: 02/22/20 11:31 Dose: Not Given Polyethylene Glycol (Miralax) 17 gm PO BID [facility] Last Admin: 02/23/20 08:06 Dose: 17 gm Prednisone (Prednisone) 40 mg PO DAILY [facility] Stop: 02/26/20 13:16 Last Admin: 02/26/20 08:21 Dose: 40 mg Rivaroxaban (Xarelto) 20 mg PO WITHDINNER [facility] Last Admin: 02/25/20 17:17 Dose: Not Given Rivaroxaban (Xarelto) Confirm Administered Dose 20 mg .ROUTE .[facility] ONE Stop: 02/22/20 18:18 Last Admin: 02/23/20 07:03 Dose: Not Given Rivaroxaban (Xarelto) Confirm Administered Dose 20 mg .ROUTE .[facility]-MED ONE Stop: 02/23/20 17:21 Last Admin: 02/23/20 17:25 Dose: 20 mg Rivaroxaban (Xarelto) Confirm Administered Dose 20 mg .ROUTE .[facility] ONE Stop: 02/24/20 17:00 Last Admin: 02/24/20 17:06 Dose: 20 mg Rivaroxaban (Xarelto) Confirm Administered Dose 20 mg .ROUTE .[facility] ONE Stop: 02/25/20 16:56 Last Admin: 02/25/20 17:16 Dose: 20 mg Rivaroxaban (Xarelto) Confirm Administered Dose 10 mg .ROUTE .K-MED ONE Stop: 02/27/20 18:05 Last Admin: 02/27/20 18:30 Dose: 10 mg Tizanidine HCl (Tizanidine) 2 mg PO QID [facility] Last Admin: 02/26/20 08:22 Dose: Not Given Tramadol HCl (Ultram) 100 mg PO Q6H PRN PRN Reason: Pain Last Admin: 02/23/20 14:18 Dose: 100 mg Venlafaxine HCl (Effexor Xr) 37.5 mg PO BEDTIME POOL Last Admin: 02/22/20 20:11 Dose: 37.5 mg
[2020-02-28] MEDS ORDERED: Venlafaxine 75 MG Cap.ER PO SCH (17:00)
[2020-02-28] MEDS ORDERED: Gabapentin 400 MG Cap PO SCH (20:00)
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
[2020-02-29] MEDS ORDERED: Acetaminophen 325 MG Tab PO PRN (13:03)
[2020-02-29] MEDS ORDERED: Gabapentin 400 MG Cap PO SCH (14:00)
[2020-02-29] MEDS ORDERED: Venlafaxine 75 MG Cap.ER PO SCH (20:00)
[2020-02-29] MEDS ORDERED: Carvedilol 6.25 MG Tab PO SCH (20:00)
[2020-02-29] MEDS ORDERED: Lisinopril 5 MG Tab PO SCH (20:00)
[2020-03-01] MEDS ORDERED: Allopurinol 100 MG Tab PO SCH (08:00)
[2020-03-01] MEDS ORDERED: Tamsulosin 0.4 MG Cap.ER PO SCH (10:00)
== END 2020-02-28 11:54 | disposition swing bed (61) | DRG 292 ==
LOC: LB.ED 10:25 → LB.MS 12:55
PROVIDERS: ADMIT Family Medicine; ATTEND Family Medicine
DX: I13.0 Hypertensive heart and chronic kidney disease with heart failure and stage 1 through stage 4 chronic kidney disease, or unspecified chronic kidney disease (principal); G83.4 Cauda equina syndrome; N39.0 Urinary tract infection, site not specified; T83.511D Infection and inflammatory reaction due to indwelling urethral catheter, subsequent encounter; K59.00 Constipation, unspecified; N18.9 Chronic kidney disease, unspecified; B95.2 Enterococcus as the cause of diseases classified elsewhere; E11.22 Type 2 diabetes mellitus with diabetic chronic kidney disease; B96.5 Pseudomonas (aeruginosa) (mallei) (pseudomallei) as the cause of diseases classified elsewhere; I50.9 Heart failure, unspecified; G47.30 Sleep apnea, unspecified; Z79.899 Other long term (current) drug therapy; Z88.1 Allergy status to other antibiotic agents; Z79.4 Long term (current) use of insulin; Z79.52 Long term (current) use of systemic steroids
CPT/HCPCS: 36415; 51798; 80048; 80053; 81001; 82150; 82962; 83036; 83605; 83735; 83880; 84145; 84153; 84443; 84484; 84550; 85025; 85027; 85610; 85730; 86140; 87086; 87088; 87186; 93005; 97161-GP; 97165-GO; 97530-GO; 99284-25; A0425; A0429; A9270-GY; C9113; J0696; J1815-GY; J1940; J3411; J3475; J3490; J7030; J7050; J7512

== ENCOUNTER 2020-02-27 10:32 | Inpatient (IN) | payer MEDICARE, OTHER ==
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
[2020-02-28] MEDS: Acetaminophen 325 MG Tab PO SCH (19:01)
[2020-02-28] MEDS: Lisinopril 5 MG Tab PO SCH (20:39)
[2020-02-28] MEDS: Carvedilol 12.5 MG Tab PO SCH (20:40)
[2020-02-28] MEDS: Carbidopa/Levodopa 25-100 MG Tab PO SCH (20:40)
[2020-02-28] MEDS: Cholecalciferol (Vitamin D3) 25 MCG Tab PO SCH (20:41)
[2020-02-29] MEDS: Allopurinol 100 MG Tab PO SCH (08:52)
[2020-02-29] MEDS: Acetaminophen 325 MG Tab PO SCH ×3 (08:53→20:50)
[2020-02-29] MEDS: Lisinopril 5 MG Tab PO SCH (08:53)
[2020-02-29] MEDS: Cholecalciferol (Vitamin D3) 25 MCG Tab PO SCH ×2 (08:53→20:51)
[2020-02-29] MEDS: Carvedilol 12.5 MG Tab PO SCH ×2 (08:54→20:50)
[2020-02-29] MEDS ORDERED: Tuberculin, PPD 5 Units/0.1 ML 1 ML MDV IDERM ONE (09:35)
[2020-02-29] MEDS: Potassium Chloride 20 MEQ Tab.ER PO SCH (14:07)
[2020-02-29] MEDS: Magnesium Oxide 400 MG Tab PO SCH ×2 (14:08→19:17)
[2020-02-29] MEDS ORDERED: Gabapentin 400 MG Cap PO SCH (16:00)
[2020-02-29] MEDS ORDERED: Acetaminophen/oxyCODONE 325-10 MG Tab ONE (19:11)
[2020-02-29] MEDS: Gabapentin 600 MG Tab PO SCH (19:14)
[2020-02-29] MEDS: Carbidopa/Levodopa 25-100 MG Tab PO SCH (19:17)
[2020-02-29] MEDS: Lisinopril 10 MG Tab PO SCH (20:44)
--- NOTE | 2020-03-01 07:24 | CR ---
DATE OF SERVICE: 02/28/20 CLINICAL DATA: recheck atelectasis AP AND LATERAL CHEST: Comparison is made to a prior exam dated 08/06/19. The patient has taken a better inspiration on this most recent exam. The heart size is at the upper limits of normal. There is persistent pulmonary vascular congestion, however, it has improved from the prior exam. There are interstitial infiltrates throughout both lungs, however, these have significantly improved from the prior exam also. No other interval changes. No pneumothorax. No pleural effusion. [id number] [facility]
[2020-03-01] MEDS: Carvedilol 12.5 MG Tab PO SCH ×2 (08:30→20:40)
[2020-03-01] MEDS: Acetaminophen 325 MG Tab PO SCH ×3 (08:30→20:39)
[2020-03-01] MEDS: Torsemide 20 MG Tab PO SCH (08:31)
[2020-03-01] MEDS: Potassium Chloride 20 MEQ Tab.ER PO SCH (08:32)
[2020-03-01] MEDS: Lisinopril 10 MG Tab PO SCH ×2 (08:32→20:40)
[2020-03-01] MEDS: Magnesium Oxide 400 MG Tab PO SCH ×2 (08:33→20:41)
[2020-03-01] MEDS: Cholecalciferol (Vitamin D3) 25 MCG Tab PO SCH ×2 (08:33→20:41)
[2020-03-01] MEDS: Allopurinol 100 MG Tab PO SCH (08:33)
[2020-03-01] MEDS: Gabapentin 600 MG Tab PO SCH ×3 (08:34→20:41)
[2020-03-01] MEDS: Acetaminophen/oxyCODONE 325-10 MG Tab PO PRN (16:36)
[2020-03-01] MEDS: Carbidopa/Levodopa 25-100 MG Tab PO SCH (20:41)
[2020-03-02] MEDS: Acetaminophen/oxyCODONE 325-10 MG Tab PO PRN ×2 (06:24→21:43)
[2020-03-02] MEDS: Acetaminophen 325 MG Tab PO SCH ×3 (08:31→19:36)
[2020-03-02] MEDS: Carvedilol 12.5 MG Tab PO SCH ×2 (08:34→19:39)
[2020-03-02] MEDS: Potassium Chloride 20 MEQ Tab.ER PO SCH (08:34)
[2020-03-02] MEDS: Magnesium Oxide 400 MG Tab PO SCH ×2 (08:34→19:38)
[2020-03-02] MEDS: Gabapentin 600 MG Tab PO SCH ×3 (08:34→19:37)
[2020-03-02] MEDS: Lisinopril 10 MG Tab PO SCH ×2 (08:37→19:36)
[2020-03-02] MEDS: Allopurinol 100 MG Tab PO SCH (08:38)
[2020-03-02] MEDS: Cholecalciferol (Vitamin D3) 25 MCG Tab PO SCH ×2 (08:51→19:38)
[2020-03-02] MEDS: Torsemide 20 MG Tab PO SCH (08:52)
[2020-03-02] MEDS ORDERED: Gabapentin 300 MG Cap ONE (19:28)
[2020-03-02] MEDS: Carbidopa/Levodopa 25-100 MG Tab PO SCH (19:37)
[2020-03-03] MEDS: Acetaminophen/oxyCODONE 325-10 MG Tab PO PRN ×2 (09:49→18:39)
[2020-03-03] MEDS: Allopurinol 100 MG Tab PO SCH (10:13)
[2020-03-03] MEDS: Cholecalciferol (Vitamin D3) 25 MCG Tab PO SCH ×2 (10:13→19:56)
[2020-03-03] MEDS: Carvedilol 12.5 MG Tab PO SCH ×2 (10:14→19:55)
[2020-03-03] MEDS: Gabapentin 600 MG Tab PO SCH ×2 (10:15→16:04)
[2020-03-03] MEDS: Potassium Chloride 20 MEQ Tab.ER PO SCH (10:16)
[2020-03-03] MEDS: Magnesium Oxide 400 MG Tab PO SCH ×2 (10:17→19:55)
[2020-03-03] MEDS: Torsemide 20 MG Tab PO SCH (10:17)
[2020-03-03] MEDS: Lisinopril 10 MG Tab PO SCH ×2 (10:17→19:53)
[2020-03-03] MEDS: Acetaminophen 325 MG Tab PO SCH ×3 (10:18→19:54)
[2020-03-03] MEDS ORDERED: Acetaminophen 325 MG Tab ONE (10:21)
[2020-03-03] MEDS: Carbidopa/Levodopa 25-100 MG Tab PO SCH (19:55)
[2020-03-04] MEDS: Carvedilol 12.5 MG Tab PO SCH ×2 (07:53→19:25)
[2020-03-04] MEDS: Magnesium Oxide 400 MG Tab PO SCH ×2 (07:59→19:26)
[2020-03-04] MEDS: Potassium Chloride 20 MEQ Tab.ER PO SCH (07:59)
[2020-03-04] MEDS: Acetaminophen 325 MG Tab PO SCH ×2 (08:00→19:25)
[2020-03-04] MEDS: Lisinopril 10 MG Tab PO SCH ×2 (08:01→19:27)
[2020-03-04] MEDS: Cholecalciferol (Vitamin D3) 25 MCG Tab PO SCH ×2 (08:02→19:27)
[2020-03-04] MEDS: Gabapentin 600 MG Tab PO SCH ×2 (08:03→15:00)
[2020-03-04] MEDS: Torsemide 20 MG Tab PO SCH (08:03)
[2020-03-04] MEDS: Allopurinol 100 MG Tab PO SCH (08:04)
[2020-03-04] MEDS: Acetaminophen/oxyCODONE 325-10 MG Tab PO PRN (16:15)
[2020-03-04] MEDS: Carbidopa/Levodopa 25-100 MG Tab PO SCH (19:26)
[2020-03-05] MEDS: Lisinopril 10 MG Tab PO SCH (08:07)
[2020-03-05] MEDS: Magnesium Oxide 400 MG Tab PO SCH (08:07)
[2020-03-05] MEDS: Carvedilol 12.5 MG Tab PO SCH (08:08)
[2020-03-05] MEDS: Potassium Chloride 20 MEQ Tab.ER PO SCH (08:08)
[2020-03-05] MEDS: Cholecalciferol (Vitamin D3) 25 MCG Tab PO SCH (08:08)
[2020-03-05] MEDS: Torsemide 20 MG Tab PO SCH (08:09)
[2020-03-05 08:10] VITALS: BP 151/80; PULSE 74
[2020-03-05] MEDS: Acetaminophen 325 MG Tab PO SCH ×3 (08:10→14:35)
[2020-03-05] MEDS: Allopurinol 100 MG Tab PO SCH (08:17)
[2020-03-05] MEDS: Gabapentin 600 MG Tab PO SCH ×3 (08:17→14:35)
[2020-03-05] MEDS: Acetaminophen/oxyCODONE 325-10 MG Tab PO PRN (08:17)
--- NOTE | 2020-03-05 08:42 | PCM.PN ---
- General Info Date of Service: 03/05/20 Subjective Update: Patient denies any concerns or issues. No Chest pain, no shortness of breath, no pain but does have decreased BM. He notes his last BM was a couple days ago. He denies any abdominal issues or fullness or tenderness. He would like to go home and then go to the [place] assisted. Currently we are waiting for confirmation for placement and authorization from the OR. [facility] pending authorization from the OR. Functional Status: Reports: Pain Controlled, Tolerating Diet - Review of Systems General: Reports: Weakness HEENT: Reports: No Symptoms Pulmonary: Reports: No Symptoms Cardiovascular: Reports: No Symptoms Gastrointestinal: Reports: Other (decreased BM) Genitourinary: Reports: Incontinence Musculoskeletal: Reports: No Symptoms Skin: Reports: No Symptoms Neurological: Reports: Weakness Psychiatric: Reports: Agitation - Patient Data Vitals - Most Recent: Last Vital Signs Temp 36.5 C 03/05/20 08:00 Pulse 74 03/05/20 08:08 Resp 17 03/05/20 08:00 BP 151/80 H 03/05/20 08:08 Pulse Ox 100 03/05/20 08:00 Weight - Most Recent: 107.048 kg Med Orders - Current: Current Medications Acetaminophen (Tylenol) 650 mg PO TID [facility] Last Admin: 03/05/20 08:10 Dose: Not Given Allopurinol (Zyloprim) 100 mg PO DAILY [facility] Last Admin: 03/05/20 08:17 Dose: 100 mg Carbidopa/Levodopa (Sinemet 25-100 Mg) 1 tab PO BEDTIME [facility] Last Admin: 03/04/20 19:26 Dose: 1 tab Carvedilol (Coreg) 12.5 mg PO BID [facility] Last Admin: 03/05/20 08:08 Dose: 12.5 mg Cholecalciferol (Vitamin D3) 25 mcg PO BID [facility] Last Admin: 03/05/20 08:08 Dose: 25 mcg Gabapentin (Neurontin) 600 mg PO TID [facility] Last Admin: 03/05/20 08:17 Dose: 600 mg Lisinopril (Prinivil) 10 mg PO BID [facility] Last Admin: 03/05/20 08:07 Dose: 10 mg Magnesium Oxide (Magnesium Oxide) 400 mg PO BID [facility] Last Admin: 03/05/20 08:07 Dose: 400 mg Oxycodone/Acetaminophen (Percocet 325-10 Mg) 1 tab PO Q6H PRN PRN Reason: Pain Last Admin: 03/05/20 08:17 Dose: 1 tab Potassium Chloride (Klor-Con M20) 40 meq PO DAILY [facility] Last Admin: 03/05/20 08:08 Dose: 40 meq Torsemide (Demadex) 10 mg PO DAILY [facility] Last Admin: 03/05/20 08:09 Dose: 10 mg Discontinued Medications Acetaminophen (Tylenol) Confirm Administered Dose 650 mg .ROUTE .STK-MED ONE Stop: 03/03/20 10:22 Gabapentin (Neurontin) 400 mg PO QID [facility] Last Admin: 02/29/20 16:45 Dose: 400 mg Gabapentin (Neurontin) Confirm Administered Dose 600 mg .ROUTE .STK-MED ONE Stop: 03/02/20 19:29 Last Admin: 03/02/20 19:36 Dose: Not Given Lisinopril (Prinivil) 5 mg PO BID [facility] Last Admin: 02/29/20 08:53 Dose: 5 mg Oxycodone/Acetaminophen (Percocet 325-10 Mg) Confirm Administered Dose 1 tab .ROUTE .STK-MED ONE Stop: 02/29/20 19:12 Last Admin: 02/29/20 19:14 Dose: 1 tab Tuberculin PPD (Aplisol) 5 unit IDERM ONETIME ONE Stop: 02/29/20 09:36 Last Admin: 02/29/20 10:23 Dose: 5 unit - Exam General: Alert, Oriented, Cooperative HEENT: Pupils Equal, Pupils Reactive, EOMI Neck: Supple Lungs: Clear to Auscultation, Normal Respiratory Effort Cardiovascular: Regular Rate, Regular Rhythm GI/Abdominal Exam: Normal Bowel Sounds, Soft, Non-Tender Extremities: Other (RLE amputation) Neurological: No New Focal Deficit Psy/Mental Status: Alert, Normal Affect, Normal Mood Sepsis Event Note - Evaluation Sepsis Screening Result: No Definite Risk - Focused Exam Vital Signs: Vital Signs Temp Pulse Pulse Resp BP BP Pulse Ox 03/05/20 08:08 74 151/80 H 03/05/20 08:07 151/80 H 03/05/20 08:00 36.5 C 74 17 151/80 H 100 Date Exam was Performed: 03/05/20 Time Exam was Performed: 14:15 - Problem List & Annotations (1) Fatigue SNOMED Code(s): 11415459 Code(s): R53.83 - OTHER FATIGUE Status: Acute Current Visit: Yes (2) Generalized weakness SNOMED Code(s): 51623326 Code(s): R53.1 - WEAKNESS Status: Acute Current Visit: Yes (3) CHF (congestive heart failure) SNOMED Code(s): 93500372 Code(s): I50.9 - HEART FAILURE, UNSPECIFIED Status: Chronic Current Visit : Yes - Problem List Review Problem List Initiated/Reviewed/Updated: Yes - Plan Plan:: Discussed pending plan of care. Patient will be transferred to [facility] when authorization approved by the OR. At this time patient will continue with PT/OT as routine.
--- NOTE | 2020-03-06 19:07 | PCM.DCSUM1 ---
Discharge Summary - Hospital Course Free Text/Narrative:: Patient has placement at [facility] beginning on 03/07/2020; wants to go home in the meantime. Denies pain, other concerns or complaints. Diagnosis: Stroke: No - Discharge Data Discharge Date: 03/05/20 Discharge Disposition: Home, Self-Care 01 Condition: Good - Referral to Home Health Primary Care Physician: Lisa Pate MD - Patient Summary/Data Consults: Consultations 03/02/20 07:00 Consult to Physical Therapy [PT Evaluation and Treatment] [CONS] Routine Please Evaluate and Treat. PT Reason for Consult: Wound Care Special Instructions: Left foot, lateral aspect. This query below is only for informational purposes and is not editable. Admission Diagnosis/Problem: Weakness - Patient Instructions Diet: Usual Diet as Tolerated Driving: May Drive Today Showering/Bathing: May Shower Notify Provider of: Fever, Increased Pain, Swelling and Redness - Discharge Plan *PRESCRIPTION DRUG MONITORING PROGRAM REVIEWED*: No Home Medications: Home Meds Acetaminophen 650 mg PO TID 02/21/20 [History] Carbidopa/Levodopa [Carbidopa-Levo 25-100 MG ODT] 25 mg PO BEDTIME 02/21/20 [ History] Cholecalciferol (Vitamin D3) [Vitamin D3] 25 mcg PO BID 02/21/20 [History] Gabapentin [Neurontin] 600 mg PO TID 02/21/20 [History] Potassium Chloride 40 meq PO DAILY 02/21/20 [History] allopurinoL [Zyloprim] 100 mg PO DAILY 02/21/20 [History] carvediloL [Carvedilol] 12.5 mg PO BID 02/21/20 [History] Magnesium Oxide 400 mg PO BID 03/05/20 [History] Torsemide [Demadex] 10 mg PO DAILY 03/05/20 [History] lisinopriL [Prinivil] 10 mg PO BID 03/05/20 [History] oxyCODONE HCl/Acetaminophen [Percocet 10-325 mg Tablet] 1 each PO Q6HR PRN 03/05 [History] Patient Handouts: Fatigue, Weakness, [id number], Deconditioning, Heart Failure, [id number] - Discharge Summary/Plan Comment DC Time >30 min.: No - General Info Date of Service: 03/05/20 Admission Dx/Problem (Free Text: Admission Diagnosis/Problem Admission Diagnosis/Problem Weakness Subjective Update: Patient denies any concerns or issues. No Chest pain, no shortness of breath, no pain but does have decreased BM. He notes his last BM was a couple days ago. He denies any abdominal issues or fullness or tenderness. He would like to go home and then go to [facility] assisted; arrangements were made for his admission there on 03/07/2020. Functional Status: Reports: Pain Controlled - Review of Systems General: Reports: No Symptoms HEENT: Reports: No Symptoms Pulmonary: Reports: No Symptoms Cardiovascular: Reports: No Symptoms Gastrointestinal: Reports: No Symptoms Genitourinary: Reports: No Symptoms Musculoskeletal: Reports: No Symptoms Skin: Reports: No Symptoms Neurological: Reports: No Symptoms Psychiatric: Reports: No Symptoms - Patient Data Vitals - Most Recent: Last Vital Signs Temp 36.5 C 03/05/20 08:00 Pulse 74 03/05/20 08:08 Resp 17 03/05/20 08:00 BP 151/80 H 03/05/20 08:08 Pulse Ox 100 03/05/20 08:00 Weight - Most Recent: 107.048 kg Med Orders - Current: Current Medications Discontinued Medications Acetaminophen (Tylenol) 650 mg PO TID [facility] Last Admin: 03/05/20 14:35 Dose: 650 mg Acetaminophen (Tylenol) Confirm Administered Dose 650 mg .ROUTE .STK-MED ONE Stop: 03/03/20 10:22 Allopurinol (Zyloprim) 100 mg PO DAILY [facility] Last Admin: 03/05/20 08:17 Dose: 100 mg Carbidopa/Levodopa (Sinemet 25-100 Mg) 1 tab PO BEDTIME [facility] Last Admin: 03/04/20 19:26 Dose: 1 tab Carvedilol (Coreg) 12.5 mg PO BID [facility] Last Admin: 03/05/20 08:08 Dose: 12.5 mg Cholecalciferol (Vitamin D3) 25 mcg PO BID [facility] Last Admin: 03/05/20 08:08 Dose: 25 mcg Gabapentin (Neurontin) 400 mg PO QID [facility] Last Admin: 02/29/20 16:45 Dose: 400 mg Gabapentin (Neurontin) 600 mg PO TID [facility] Last Admin: 03/05/20 14:35 Dose: 600 mg Gabapentin (Neurontin) Confirm Administered Dose 600 mg .ROUTE .STK-MED ONE Stop: 03/02/20 19:29 Last Admin: 03/02/20 19:36 Dose: Not Given Lisinopril (Prinivil) 5 mg PO BID [facility] Last Admin: 02/29/20 08:53 Dose: 5 mg Lisinopril (Prinivil) 10 mg PO BID [facility] Last Admin: 03/05/20 08:07 Dose: 10 mg Magnesium Oxide (Magnesium Oxide) 400 mg PO BID [facility] Last Admin: 03/05/20 08:07 Dose: 400 mg Oxycodone/Acetaminophen (Percocet 325-10 Mg) 1 tab PO Q6H PRN PRN Reason: Pain Last Admin: 03/05/20 08:17 Dose: 1 tab Oxycodone/Acetaminophen (Percocet 325-10 Mg) Confirm Administered Dose 1 tab .ROUTE .STK-MED ONE Stop: 02/29/20 19:12 Last Admin: 02/29/20 19:14 Dose: 1 tab Potassium Chloride (Klor-Con M20) 40 meq PO DAILY [facility] Last Admin: 03/05/20 08:08 Dose: 40 meq Torsemide (Demadex) 10 mg PO DAILY [facility] Last Admin: 03/05/20 08:09 Dose: 10 mg Tuberculin PPD (Aplisol) 5 unit IDERM ONETIME ONE Stop: 02/29/20 09:36 Last Admin: 02/29/20 10:23 Dose: 5 unit
== END 2020-03-05 15:40 | disposition home or self-care (01) | DRG 948 ==
LOC: LB.MS 02-28 11:41 → UNDOADMIN 02-28 11:41 → LB.MS 02-28 13:54
PROVIDERS: ADMIT Family Medicine; ATTEND Family Medicine
DX: R53.1 Weakness (principal); G89.29 Other chronic pain; H91.90 Unspecified hearing loss, unspecified ear; H54.7 Unspecified visual loss; I25.10 Atherosclerotic heart disease of native coronary artery without angina pectoris; I50.9 Heart failure, unspecified; E78.00 Pure hypercholesterolemia, unspecified; I11.0 Hypertensive heart disease with heart failure; K59.09 Other constipation; G47.30 Sleep apnea, unspecified; M54.9 Dorsalgia, unspecified; R33.9 Retention of urine, unspecified; Z89.611 Acquired absence of right leg above knee; F32.9 Major depressive disorder, single episode, unspecified; E11.9 Type 2 diabetes mellitus without complications; Z90.49 Acquired absence of other specified parts of digestive tract; Z88.5 Allergy status to narcotic agent; Z88.8 Allergy status to other drugs, medicaments and biological substances; Z79.4 Long term (current) use of insulin; Z79.52 Long term (current) use of systemic steroids; Z79.899 Other long term (current) drug therapy
CPT/HCPCS: 36415; 71046; 80053; 82533; 82962; 83880; 85025; 86140; 86580; 97530-GO; 99304; 99315; A9270-GY